=== PATIENT | female | born 1945 | race Caucasian/White ===

== ENCOUNTER 2017-11-08 10:29 | Inpatient (IN) ==
--- NOTE | 2017-11-08 11:13 | ED ---
HPI General Chief Complaint: Extremity Injury, Lower Stated Complaint: Fall, swollen left hip/pelvis Time Seen by Provider: 11/08/17 10:57 History of Present Illness HPI Narrative: Patient is 72-year-old female with history of alcohol abuse presented to emergency room for evaluation of left hip and left lower quadrant of the abdomen. 2 days ago she accidentally fell. Today she presented with large hematoma over her left hip and left lower abdomen with mild tenderness over the hip and lower abdomen as well. Patient is able to ambulate with pain, no other trauma reported. Related Data Home Medications Medication Instructions Recorded Confirmed No Known Home Medications 11/08/17 11/08/17 Allergies Allergy/AdvReac Type Severity Reaction Status Date / Time No Known Allergies Allergy Uncoded 07/15/15 10:04 Review of Systems ROS: all other systems reviewed are negative Musculoskeletal Comments: Left hip and low abdominal wall pain PMFSH Medical History Medical History Patient denies medical problems (Acute) Surgical History Surgical History No history of previous surgery (Acute) Family History Family History Other Multiple myeloma Social History Social History Substance History: No History of Abuse Second Hand Smoke Exposure: No Smoking Status: Never smoker How Often Do You Have a Drink Containing Alcohol: 4 or more times a week Recent Travel in [facility] within the Last 8 Weeks: No Recent Out of Country Travel within the Last 8 Weeks: No Immunization History Tetanus Immunization: >5 Years Hx Influenza Vaccine This Season: No Exam Narrative Exam Narrative: GENERAL: 72-year-old female in no obvious distress. SKIN: Focused skin assessment warm/dry. HEAD: Atraumatic. Normocephalic. EYES: Pupils equal and round. No scleral icterus. No injection or drainage. ENT: No nasal bleeding or discharge. Mucous membranes pink and moist. NECK: Trachea midline. No JVD. CARDIOVASCULAR: Regular rate and rhythm. No murmur appreciated. RESPIRATORY: No accessory muscle use. Clear to auscultation. Breath sounds equal bilaterally. GASTROINTESTINAL: Abdomen soft, non-tender, nondistended. Hepatic and splenic margins not palpable. MUSCULOSKELETAL: No obvious deformities. No clubbing. No cyanosis. No edema. NEUROLOGICAL: Awake and alert. No obvious cranial nerve deficits. Motor grossly within normal limits. Normal speech. PSYCHIATRIC: Appropriate mood and affect; insight and judgment normal. Course Initial Documented Vital Signs Temperature 98.2 F 11/08/17 10:39 Pulse Rate 117 H 11/08/17 10:39 Respiratory Rate 17 11/08/17 10:39 Blood Pressure 166/92 H 11/08/17 10:39 Pulse Oximetry 96 11/08/17 10:39 Last Documented Vital Signs Temperature 98.9 F 11/08/17 16:00 Pulse Rate 112 H 11/08/17 16:00 Respiratory Rate 16 11/08/17 16:00 Blood Pressure 162/79 H 11/08/17 16:00 Pulse Oximetry 94 L 11/08/17 16:00 Critical Care Time Critical Care Time: Yes Total Critical Care Time: 35 Attestation: Treatment of alcohol withdrawal, pain management, evaluation of leukocytosis, patient to the hospital. Medical Decision Making MDM Narrative Medical decision making narrative: 72-year-old female fell 2 days ago. She has hematoma over her left hip and left low abdominal wall. Evaluation evaluation needed for left hip and abdomen. X-ray CAT scan blood work ordered. X-ray and CAT scan negative for fracture. White count is 57.8 which is higher. leukemia suspected. Case discussed with admitting team of Dr. Foley, accepted for admission for further evaluation and treatment Medical Screen Exam Complete: Yes Emergency Medical Condition: Yes Lab Data Result diagrams: 11/08/17 11:15 11/08/17 11:15 Lab Results 11/08/17 11/08/17 11/08/17 Range/Units 11:15 11:15 11:15 WBC 57.8 H (4.0-11.0) th/mm3 RBC 5.59 H (4.00-5.30) mil/mm3 Hgb 15.9 H (11.6-15.3) gm/dL Hct 50.3 H (35.0-46.0) % MCV 90.0 (80.0-100.0) fL MCH 28.5 (27.0-34.0) pg MCHC 31.7 L (32.0-36.0) % RDW 21.6 H (11.6-17.2) % Plt Count 194 (150-450) th/mm3 MPV 8.5 (7.0-11.0) fL Prelim Diff (Auto) Manual diff required WBC Differential Manual diff final Seg Neuts % (Manual) 90 H (16-70) % Band Neuts % (Manual) 2 (0-6) % Lymphocytes % (Manual) 4 L (9-44) % Monocytes % (Manual) 2 (0-8) % Metamyelocytes % (Man) 3 H (0-1) % Myelocytes % (Man) 1 H (0-0) % Abs Neuts (Manual) 55.5 H (1.8-7.7) th/mm3 Nucleated RBCs/100 WBC 1 H (0-0) /100 WBC Differential Comment . Toxic Vacuolation Present H (None) Platelet Estimate Normal (Normal) Platelet Morphology Normal (Normal) Smear Path Review PT 10.6 (9.8-11.6) sec INR 1.0 Ratio APTT 27.1 (24.3-30.1) sec Sodium 137 (136-145) meq/L Potassium 4.0 (3.5-5.1) meq/L Chloride 100 (98-107) meq/L Carbon Dioxide 16.4 L (21.0-32.0) meq/L Anion Gap 21 H (5-15) meq/L BUN 9 (7-18) mg/dL Creatinine 0.91 (0.50-1.00) mg/dL Estimated GFR 61 L (>89) mL/min Random Glucose 102 (74-106) mg/dL Calcium 8.1 L (8.5-10.1) mg/dL Total Bilirubin 2.0 H (0.2-1.0) mg/dL AST 21 (15-37) U/L ALT 27 (10-53) U/L Alkaline Phosphatase 138 H (45-117) U/L Total Protein 7.3 (6.4-8.2) g/dL Albumin 4.1 (3.4-5.0) g/dL Urine Color (Yellw/Straw) Urine Clarity (Clear) Urine pH (5.0-8.5) Ur Specific Polk (1.002-1.035) Urine Protein (Neg-Trace) mg/dL Urine Glucose (UA) (Negative) mg/dL Urine Ketones (Negative) mg/dL Urine Occult Blood (Negative) Urine Nitrate (Negative) Urine Bilirubin (Negative) Urine Urobilinogen (Less than 2) mg/dL Ur Leukocyte Esterase (Negative) Urine RBC (0-3) /hpf Urine WBC (0-5) /hpf Ur Squamous Epith Cells (0-5) /hpf Hyaline Casts (0-3) /lpf Granular Casts (None) /lpf Urine Mucus (Occasional) /lpf Ur Microscopic Review Urine Opiates Screen (Neg) Ur Barbiturates Screen (Neg) Ur Amphetamines Screen (Neg) U Benzodiazepines Scrn (Neg) Urine Cocaine Screen (Neg) U Cannabinoids Screen (Neg) Serum Alcohol 47 H (0-5) mg/dL 11/08/17 11/08/17 11/08/17 Range/Units 11:15 11:58 11:58 WBC (4.0-11.0) th/mm3 RBC (4.00-5.30) mil/mm3 Hgb (11.6-15.3) gm/dL Hct (35.0-46.0) % MCV (80.0-100.0) fL MCH (27.0-34.0) pg MCHC (32.0-36.0) % RDW (11.6-17.2) % Plt Count (150-450) th/mm3 MPV (7.0-11.0) fL Prelim Diff (Auto) WBC Differential Seg Neuts % (Manual) (16-70) % Band Neuts % (Manual) (0-6) % Lymphocytes % (Manual) (9-44) % Monocytes % (Manual) (0-8) % Metamyelocytes % (Man) (0-1) % Myelocytes % (Man) (0-0) % Abs Neuts (Manual) (1.8-7.7) th/mm3 Nucleated RBCs/100 WBC (0-0) /100 WBC Differential Comment Toxic Vacuolation (None) Platelet Estimate (Normal) Platelet Morphology (Normal) Smear Path Review PT (9.8-11.6) sec INR Ratio APTT (24.3-30.1) sec Sodium (136-145) meq/L Potassium (3.5-5.1) meq/L Chloride (98-107) meq/L Carbon Dioxide (21.0-32.0) meq/L Anion Gap (5-15) meq/L BUN (7-18) mg/dL Creatinine (0.50-1.00) mg/dL Estimated GFR (>89) mL/min Random Glucose (74-106) mg/dL Calcium (8.5-10.1) mg/dL Total Bilirubin (0.2-1.0) mg/dL AST (15-37) U/L ALT (10-53) U/L Alkaline Phosphatase (45-117) U/L Total Protein (6.4-8.2) g/dL Albumin (3.4-5.0) g/dL Urine Color Yellow (Yellw/Straw) Urine Clarity Hazy H (Clear) Urine pH 5.0 (5.0-8.5) Ur Specific Polk 1.021 (1.002-1.035) Urine Protein 30 H (Neg-Trace) mg/dL Urine Glucose (UA) Negative (Negative) mg/dL Urine Ketones Trace H (Negative) mg/dL Urine Occult Blood Negative (Negative) Urine Nitrate Negative (Negative) Urine Bilirubin Negative (Negative) Urine Urobilinogen Less than 2 (Less than 2) mg/dL Ur Leukocyte Esterase Negative (Negative) Urine RBC Less than 1 (0-3) /hpf Urine WBC 1 (0-5) /hpf Ur Squamous Epith Cells 3 (0-5) /hpf Hyaline Casts 5 (0-3) /lpf Granular Casts 5 (None) /lpf Urine Mucus Few H (Occasional) /lpf Ur Microscopic Review Not Reportable Urine Opiates Screen Neg (Neg) Ur Barbiturates Screen Neg (Neg) Ur Amphetamines Screen Neg (Neg) U Benzodiazepines Scrn Neg (Neg) Urine Cocaine Screen Neg (Neg) U Cannabinoids Screen Neg (Neg) Serum Alcohol (0-5) mg/dL Imaging Data Radiologist's impression: Abdomen/Pelvis CT 11/08/17 11:05 CONCLUSION: 1. Large subcutaneous hematoma over the left lateral abdomen adjacent to the anterior iliac bone. This measures up to at least 7.3 cm and there is surrounding inflammatory change. 2. No acute visceral injury. 3. Moderate hepatic steatosis. Hip X-Ray 11/08/17 11:05 CONCLUSION: Negative trauma study. Discharge Plan Discharge Disposition Patient Disposition: 30 Still Patient Discharge Condition Condition: Fair Discharge Details Discharge Comment: Patient has high white count, admitted for further evaluation and treatment. Diagnosis: Leukocytosis, unspecified Physicians Team ED Provider: Angel Mg Primary Care Provider: Primary Care Mitzi Corbett Attending Provider: Denis Foley Status ED Status: Left Department Discharge Information Discharge Date/Time: 11/08/17 16:12
[2017-11-08 11:26] LABS: Hematocrit 50.3 % (35.0-46.0); Hemoglobin 15.9 gm/dL (11.6-15.3); Mean Corpuscular HGB Conc 31.7 % (32.0-36.0); Mean Corpuscular Hemoglobin 28.5 pg (27.0-34.0); Mean Platelet Volume 8.5 fL (7.0-11.0); Platelet Count 194 th/mm3 (150-450); Red Blood Count 5.59 mil/mm3 (4.00-5.30); Red Cell Distribution Width 21.6 % (11.6-17.2); White Blood Count 57.8 th/mm3 (4.0-11.0)
[2017-11-08] MEDS ORDERED: Dextrose 5%/NaCl 0.45% Inj 1,000 ML IV.CONT SCH (11:30)
[2017-11-08 11:44] LABS: Activated Partial Thrombo Time 27.1 sec (24.3-30.1); Alanine Aminotransferase 27 U/L (10-53); Albumin 4.1 g/dL (3.4-5.0); Anion Gap 21 meq/L (5-15); Aspartate Aminotransferase 21 U/L (15-37); Blood Urea Nitrogen 9 mg/dL (7-18); Calcium 8.1 mg/dL (8.5-10.1); Carbon Dioxide 16.4 meq/L (21.0-32.0); Chloride 100 meq/L (98-107); Glomerular Filtration Rate 61 mL/min (>89); Glucose,Random 102 mg/dL (74-106); Prothrombin Time 10.6 sec (9.8-11.6); Sodium 137 meq/L (136-145)
[2017-11-08 11:46] LABS: Alcohol 47 mg/dL (0-5); Alkaline Phosphatase 138 U/L (45-117); Total Protein 7.3 g/dL (6.4-8.2)
[2017-11-08 12:02] LABS: Lymphocytes 4 % (9-44); Metamyelocytes 3 % (0-1); Monocytes 2 % (0-8); Myelocytes 1 % (0-0); Tallied Nucleated RBC 2 (0-0)
[2017-11-08 12:03] LABS: Platelet Estimate Normal (Normal); Platelet Morphology Normal (Normal); Toxic Vacuolation Present
--- NOTE | 2017-11-08 12:11 | XR ---
EXAM DATE: 11/08/2017 11:05 AM EDT AGE/SEX: 72 years / Female INDICATIONS: Fell 2 days ago, swelling and bruised in left flank/hip area. CLINICAL DATA: This is the patient's initial encounter. Patient reports that signs and symptoms have been present for 2 days and indicates a pain score of 1/10. MEDICAL/SURGICAL HISTORY: None. None. COMPARISON: No prior exams available for comparison. FINDINGS: Bony structures are intact and in normal alignment. Joints are intact without dislocation or signifi cant arthropathy. Osseous density is normal. Soft tissues are unremarkable. No radiopaque foreign bodies seen. CONCLUSION: Negative trauma study. Electronically signed by: Denis Kamara MD 11/08/2017 12:10 PM EDT
[2017-11-08] MEDS: Sod Chloride 0.9% Inj 1,000 ML IV.CONT SCH ×3 (12:19→20:18)
[2017-11-08 12:27] LABS: Bilirubin,Urine Negative (Negative); Clarity,Urine Hazy (Clear); Color,Urine Yellow (Yellw/Straw); Glucose,Urine (UA) Negative (Negative); Hyaline Casts,Urine 5 /lpf (0-3); Leukocyte Esterase,Urine Negative (Negative); Mucus,Urine Few /lpf (Occasional); Nitrite,Urine Negative (Negative); Specific Gravity,Urine 1.021 (1.002-1.035); Squamous Epithelial Cell,Urine 3 /hpf (0-5)
[2017-11-08 12:41] LABS: Amphetamine Screen,Urine Neg (Neg); Barbiturate Screen,Urine Neg (Neg); Cannabinoid Screen,Urine Neg (Neg); Cocaine Screen,Urine Neg (Neg)
--- NOTE | 2017-11-08 12:41 | CT ---
EXAM DATE: 11/08/2017 12:05 PM EDT AGE/SEX: 72 years / Female INDICATIONS: Slipped and fell down two days ago. CLINICAL DATA: This is the patient's initial encounter. Patient reports that signs and symptoms have been present for 1 day and indicates a pain score of 10/10. MEDICAL/SURGICAL HISTORY: None. None. ORAL CONTRAST: No oral contrast ingested. RADIATION DOSE: 6.57 CTDI (mGy) COMPARISON: . TECHNIQUE: Multiple contiguous axial images were obtained through the abdomen and pelvis following b olus infusion of 90 ml Omnipaque 350 (iohexol) nonionic water-soluble contrast as a single exam dos e. No oral contrast ingested. Using automated exposure control and adjustment of the mA and/or kV ac cording to patient size, radiation dose was kept as low as reasonably achievable to obtain optimal di agnostic quality images. DICOM format image data is available electronically for review and comparis on. FINDINGS: Lower Lungs: The visualized lower lungs are clear. Liver: The liver has a homogeneous density without space-occupying lesion. There is no dilation of th e biliary tree. There is moderate diffuse hepatic steatosis. The gallbladder is unremarkable in appea smita. Spleen: Homogeneous density without enlargement. Pancreas: Unremarkable without mass or calcification. Kidneys: Normal in size and shape. No evidence of mass or hydronephrosis. Adrenal Glands: Unremarkable. Aorta: The aorta and proximal iliac vessels are grossly unremarkable without aneurysmal dilation. Bowel/Mesentery: The bowel loops are grossly unremarkable. The cecum and sigmoid colon have a normal configuration. Abdominal Wall: Intact. There is a large soft tissue hematoma over the lower left lateral abdomen ad jacent to the anterior iliac bone. This measures up to 7.3 x 5.7 cm in diameter. There is surrounding hemorrhage and inflammatory change. This extends along the lateral abdominal musculature and down in to the right inguinal region and upper lateral thigh. Retroperitoneum: No evidence of adenopathy in the retrocrural, para-aortic, or deep pelvic regions. Bladder: Contours are smooth. Reproductive Organs: No abnormal masses or calcifications seen. Inguinal: The inguinal region is unremarkable without evidence of adenopathy. Bony Structures: Unremarkable. CONCLUSION: 1. Large subcutaneous hematoma over the left lateral abdomen adjacent to the anterior iliac bone. Th is measures up to at least 7.3 cm and there is surrounding inflammatory change. 2. No acute visceral injury. 3. Moderate hepatic steatosis. Electronically signed by: Denis Kamara MD 11/08/2017 12:40 PM EDT
[2017-11-08 12:55] LABS: Opiate Screen,Urine Neg (Neg)
--- NOTE | 2017-11-08 13:51 | P.HPFP ---
History of Present Illness Primary Care Physician: No Primary Care Physician <GustavogalinaDenis K - 11/08/17 21:01> No Primary Care Physician <Amanda Park - 11/08/17 13:51> History of Present Illness: 72-year-old female presents to the ED with left hip pain. Here with . States that she was at her neighbor's house on Tuesday and fell while she was walking down the stairs from the porch. She fell on her left hip. She mainly experienced bruising and swelling of her left hip. She states that she lost her balance. She did not hit her head. She denies loss of consciousness, tongue biting cough, loss of bowel or bladder symptoms, and palpitations. Patient states that they were in [facility] at the time and did not want to seek medical care there. She states that her and her live in a camper and were traveling to [facility]. She has no history of fractures. She denies chest pain, SOB , weight loss, fevers, chills, and night sweats. PMHx: HTN? PSHx: skin cancer removal on nose teeth removed Meds: none Allergies:NKDA FHx: Mom- 86 multiple myeloma Dad-91- heart conditions Siblings: sister cancer-breast cancer Social: Live with , retired Smoking- denies Alcohol-1 beer/1 vodka / night Denies illicit drug use <Amanda Park - 11/08/17 17:23> - Diagnosis (1) Hip hematoma, left (2) Leukocytosis (3) Polycythemia (4) HTN (hypertension) (5) Nutrition, metabolism, and development symptoms (6) Alcohol use <GustavogalinaDenis K - 11/08/17 21:01> (1) Hip hematoma, left (2) Leukocytosis (3) Polycythemia (4) HTN (hypertension) (5) Nutrition, metabolism, and development symptoms (6) Alcohol use <Amanda Park - 11/08/17 17:23> Inpatient Certification: I certify that the inpatient services were ordered in accordance with Medicare regulations governing the order. This includes certification that hospital inpatient services are reasonable and necessary and in the case of services not specified as inpatient-only under 42 CFR 419.22(n), that they are appropriately provided as inpatient services in accordance to with the 2-midnight benchmark under 43 CFR 412.3(e) <Denis Foley 11/08/17 21:01> Review of Systems Constitutional: Denies fever(s), Denies night sweats, Denies weight loss <Xavier Amandavilma Meyer 11/08/17 17:23> Eyes: Denies blurry vision <XavierAmandavilma Meyer 11/08/17 17:23> Cardiovascular: Denies chest pain, Denies lightheadedness <Amanda Park 11/08/17 17:23> Gastrointestinal: Denies abdominal pain, Denies nausea, Denies vomiting <Amanda Park 11/08/17 17:23> Genitourinary: Denies difficulty urinating <Amanda Park 11/08/17 17:23> Musculoskeletal: Reports joint pain, Reports joint swelling <XavierAmandavilma Meyer 11/08/17 17:23> Neurologic: Denies tingling/numbness/burning sensations, Denies weakness <Xavier Amandavilma Meyer 11/08/17 17:23> PMFSH - History History Provided By: Patient <XavierJoseAmandavilma Meyer 11/08/17 13:51> - Medical History Medical History: Medical History (Last Updated 11/08/17 @ 10:59 by Cindy Sanchez, RN) Patient denies medical problems <Denis Foley 11/08/17 21:01> Medical History (Last Updated 11/08/17 @ 10:59 by Cindy Sanchez, RN) Patient denies medical problems <Amanda Park 11/08/17 13:51> - Surgical History Surgical History: Surgical History (Last Updated 11/08/17 @ 10:59 by Cindy Sanchez, RN) No history of previous surgery <Denis Foley 11/08/17 21:01> Surgical History (Last Updated 11/08/17 @ 10:59 by Cindy Sanchez, RN) No history of previous surgery <Amanda Park 11/08/17 13:51> - Family History Family History: Family History (Last Updated 11/08/17 @ 17:21 by Amanda Park MD, R2) Other Multiple myeloma <Denis Foley - 11/08/17 21:01> Family History (Last Updated 11/08/17 @ 17:21 by Amanda Park MD, R2) Other Multiple myeloma <Amanda Park - 11/08/17 17:23> - Tobacco History Smoking Status: Never smoker <XavierAmandavilma You - 11/08/17 13:51> - Alcohol History How Often Do You Have a Drink Containing Alcohol: 4 or more times a week <Amanda Park - 11/08/17 13:51> - Substance Use History Substance History: No History of Abuse <Amanda Park - 11/08/17 13:51> - Substance Use Type Alcohol Status: Active <Amanda Park - 11/08/17 17:23> Route Used: By Mouth <XavierAmandavilma Meyer Kenyatta - 11/08/17 17:23> Frequency: SEVERAL TIMES A DAY <Amanda Park Kenyatta - 11/08/17 17:23> Last Used: 11/08/17 <XavierAmandavilma Meyer Kenyatta - 11/08/17 17:23> Reason for Use: Calm Down <Amanda Park Kenyatta - 11/08/17 17:23> - Travel History Recent Travel in the [place] Within the Last 8 Weeks: No <Amanda Park Kenyatta - 11/08 13:51> Recent Travel Out of the Country Within the Last 8 Weeks: No <Amanda Park Kenyatta - 11/08/17 13:51> - Immunization History Tetanus Immunization: >5 Years <Amanda Park - 11/08/17 13:51> Hx Influenza Vaccine This Season: No <XavierAmandavilma Meyer Kenyatta - 11/08/17 13:51> Medications and Allergies Allergies Allergy/AdvReac Type Severity Reaction Status Date / Time No Known Allergies Allergy Uncoded 07/15/15 10:04 <Denis Foley 11/08/17 21:01> Home Medications Medication Instructions Recorded Confirmed Type No Known Home Medications 11/08/17 11/08/17 History <Denis Foley 11/08/17 21:01> Active Medications: Active Medications Clonidine HCl (Catapres) 0.1 mg PO Q6H PRN PRN Reason: SEE LABEL COMMENTS Enoxaparin Sodium (Lovenox Inj) 40 mg SQ Q24H [facility] Last Admin: 11/08/17 18:36 Dose: 40 mg Flumazenil (Romazecon Inj) 0.2 mg IV.PUSH Q1M PRN PRN Reason: OVERSEDATION Haloperidol Lactate (Haldol Inj) 1 mg IV.PUSH Q15M PRN PRN Reason: for severe agitation Sodium Chloride (Ns Inj) 1,000 mls @ 150 mls/hr IV.CONT .Q6H40M [facility] Last Admin: 11/08/17 20:18 Dose: 150 mls/hr Ibuprofen (Motrin) 400 mg PO Q6HR PRN PRN Reason: PAIN SCALE 1 TO 2 Ketorolac Tromethamine (Toradol Inj) 15 mg IV.PUSH Q6H PRN PRN Reason: PAIN 3-5; IF UABLE TO TAKE PO Stop: 11/13/17 15:59 Ketorolac Tromethamine (Toradol Inj) 30 mg IV.PUSH Q6H PRN PRN Reason: PAIN 6-10;IF UNABLE TO TAKE PO Stop: 11/13/17 15:59 Lisinopril (Prinivil) 20 mg PO DAILY [facility] Last Admin: 11/08/17 18:11 Dose: 20 mg Lorazepam (Ativan) 1 mg PO Q4H PRN PRN Reason: for CIWA 8-10 Lorazepam (Ativan) 2 mg PO Q2H PRN PRN Reason: for CIWA 11-14 Lorazepam (Ativan Inj) 2 mg IV.PUSH Q2H PRN PRN Reason: for CIWA 11-14 Lorazepam (Ativan Inj) 2 mg IV.PUSH Q15M PRN PRN Reason: for CIWA > 20 Lorazepam (Ativan Inj) 1 mg IV.PUSH Q4H PRN PRN Reason: for CIWA 8-10 Lorazepam (Ativan Inj) 2 mg IV.PUSH Q1H PRN PRN Reason: for CIWA 15-20 Naloxone HCl (Narcan Inj) 0.4 mg IV.PUSH UNSCH PRN PRN Reason: SEE LABEL COMMENTS Sodium Chloride (Ns Flush) 2 ml IV.FLUSH BID [facility] Last Admin: 11/08/17 20:18 Dose: Not Given Sodium Chloride (Ns Flush) 2 ml IV.FLUSH UNSCH PRN PRN Reason: FLUSH AFTER USING IV ACCESS <Denis Foley David - 11/08/17 21:01> Active Medications Sodium Chloride (Ns Inj) 1,000 mls @ 150 mls/hr IV.CONT .Q6H40M [facility] Last Admin: 11/08/17 12:19 Dose: 150 mls/hr <Amanda Park T - 11/08/17 13:51> Exam Vital signs: Vital Signs 11/08/17 10:39 11/08/17 11:03 11/08/17 15:44 Temperature 98.2 F Pulse Rate 117 H 118 H 119 H Respiratory Rate 17 23 16 Blood Pressure 166/92 H 157/90 H 151/73 H Pulse Oximetry 96 95 96 11/08/17 16:00 Temperature 98.9 F Pulse Rate 112 H Respiratory Rate 16 Blood Pressure 162/79 H Pulse Oximetry 94 L Intake & Output 11/08/17 11/08/17 11/09/17 06:59 18:59 06:59 Intake Total 1000 / 1000 Balance 1000 / 1000 Weight 54.431 kg Intake: IV 1000 / 1000 NS Inj 1,000 ML @ 150 mls/hr IV 1000 / 1000 .CONT .Q6H40M [facility] Rx#:[id number] Other: # Voids 1 Date of Last Bowel Movement 11/08/17 <Denis Foley David - 11/08/17 21:01> Vital Signs 11/08/17 10:39 11/08/17 11:03 Temperature 98.2 F Pulse Rate 117 H 118 H Respiratory Rate 17 23 Blood Pressure 166/92 H 157/90 H Pulse Oximetry 96 95 Intake & Output 11/07/17 11/08/17 11/08/17 18:59 06:59 18:59 Weight 54.431 kg <Amanda Park T - 11/08/17 13:51> Narrative: General: Elderly, pleasant, female resting comfortably in bed Skin: 27 x 25 cm hematoma located on left hip radiating to midline of back and left thigh HEENT: PERRLA, EOMI, no lymphadenopathy, throat clear Cardio: Regular rate and rhythm, no murmurs rubs or gallops Pulmonary: Clear to auscultation bilaterally, no wheezes or crackles Abdomen: Soft, tender around hematoma, nondistended, positive bowel sounds Extremities: No cyanosis or edema Neuro: Alert and oriented <Amanda Park T - 11/08/17 17:23> Results - Labs Result diagrams: 11/08/17 11:15 11/08/17 11:15 <Denis Foley K - 11/08/17 21:01> Abnormal lab results 11/08/17 11/08/17 11/08/17 Range/Units 11:15 11:15 11:58 WBC 57.8 H (4.0-11.0) th/mm3 RBC 5.59 H (4.00-5.30) mil/mm3 Hgb 15.9 H (11.6-15.3) gm/dL Hct 50.3 H (35.0-46.0) % MCHC 31.7 L (32.0-36.0) % RDW 21.6 H (11.6-17.2) % Seg Neuts % (Manual) 90 H (16-70) % Lymphocytes % (Manual) 4 L (9-44) % Metamyelocytes % (Man) 3 H (0-1) % Myelocytes % (Man) 1 H (0-0) % Abs Neuts (Manual) 55.5 H (1.8-7.7) th/mm3 Nucleated RBCs/100 WBC 1 H (0-0) /100 WBC Toxic Vacuolation Present H (None) Carbon Dioxide 16.4 L (21.0-32.0) meq/L Anion Gap 21 H (5-15) meq/L Estimated GFR 61 L (>89) mL/min Calcium 8.1 L (8.5-10.1) mg/dL Total Bilirubin 2.0 H (0.2-1.0) mg/dL Alkaline Phosphatase 138 H (45-117) U/L Urine Clarity Hazy H (Clear) Urine Protein 30 H (Neg-Trace) mg/dL Urine Ketones Trace H (Negative) mg/dL Urine Mucus Few H (Occasional) /lpf Serum Alcohol 47 H (0-5) mg/dL Short CBC 11/08/17 Range/Units 11:15 WBC 57.8 H (4.0-11.0) th/mm3 Hgb 15.9 H (11.6-15.3) gm/dL Hct 50.3 H (35.0-46.0) % Plt Count 194 (150-450) th/mm3 BMP 11/08/17 11:15 Sodium 137 Potassium 4.0 Chloride 100 Carbon Dioxide 16.4 L BUN 9 Creatinine 0.91 Calcium 8.1 L Liver Function 11/08/17 Range/Units 11:15 Total Bilirubin 2.0 H (0.2-1.0) mg/dL AST 21 (15-37) U/L ALT 27 (10-53) U/L Alkaline Phosphatase 138 H (45-117) U/L Albumin 4.1 (3.4-5.0) g/dL Urine 11/08/17 Range/Units 11:58 Urine Color Yellow (Yellw/Straw) Urine Clarity Hazy H (Clear) Urine pH 5.0 (5.0-8.5) Ur Specific Minto 1.021 (1.002-1.035) Urine Protein 30 H (Neg-Trace) mg/dL Urine Glucose (UA) Negative (Negative) mg/dL <Denis Foley - 11/08/17 21:01> Abnormal lab results 11/08/17 11/08/17 11/08/17 Range/Units 11:15 11:15 11:58 WBC 57.8 H (4.0-11.0) th/mm3 RBC 5.59 H (4.00-5.30) mil/mm3 Hgb 15.9 H (11.6-15.3) gm/dL Hct 50.3 H (35.0-46.0) % MCHC 31.7 L (32.0-36.0) % RDW 21.6 H (11.6-17.2) % Seg Neuts % (Manual) 90 H (16-70) % Lymphocytes % (Manual) 4 L (9-44) % Metamyelocytes % (Man) 3 H (0-1) % Myelocytes % (Man) 1 H (0-0) % Abs Neuts (Manual) 55.5 H (1.8-7.7) th/mm3 Nucleated RBCs/100 WBC 1 H (0-0) /100 WBC Toxic Vacuolation Present H (None) Carbon Dioxide 16.4 L (21.0-32.0) meq/L Anion Gap 21 H (5-15) meq/L Estimated GFR 61 L (>89) mL/min Calcium 8.1 L (8.5-10.1) mg/dL Total Bilirubin 2.0 H (0.2-1.0) mg/dL Alkaline Phosphatase 138 H (45-117) U/L Urine Clarity Hazy H (Clear) Urine Protein 30 H (Neg-Trace) mg/dL Urine Ketones Trace H (Negative) mg/dL Urine Mucus Few H (Occasional) /lpf Serum Alcohol 47 H (0-5) mg/dL Short CBC 11/08/17 Range/Units 11:15 WBC 57.8 H (4.0-11.0) th/mm3 Hgb 15.9 H (11.6-15.3) gm/dL Hct 50.3 H (35.0-46.0) % Plt Count 194 (150-450) th/mm3 BMP 11/08/17 11:15 Sodium 137 Potassium 4.0 Chloride 100 Carbon Dioxide 16.4 L BUN 9 Creatinine 0.91 Calcium 8.1 L Liver Function 11/08/17 Range/Units 11:15 Total Bilirubin 2.0 H (0.2-1.0) mg/dL AST 21 (15-37) U/L ALT 27 (10-53) U/L Alkaline Phosphatase 138 H (45-117) U/L Albumin 4.1 (3.4-5.0) g/dL Urine 11/08/17 Range/Units 11:58 Urine Color Yellow (Yellw/Straw) Urine Clarity Hazy H (Clear) Urine pH 5.0 (5.0-8.5) Ur Specific Minto 1.021 (1.002-1.035) Urine Protein 30 H (Neg-Trace) mg/dL Urine Glucose (UA) Negative (Negative) mg/dL <Amanda Park T - 11/08/17 13:51> - Imaging Impressions Abdomen/Pelvis CT 11/08/17 11:05 CONCLUSION: 1. Large subcutaneous hematoma over the left lateral abdomen adjacent to the anterior iliac bone. This measures up to at least 7.3 cm and there is surrounding inflammatory change. 2. No acute visceral injury. 3. Moderate hepatic steatosis. Hip X-Ray 11/08/17 11:05 CONCLUSION: Negative trauma study. <Denis Foley - 11/08/17 21:01> Impressions Abdomen/Pelvis CT 11/08/17 11:05 CONCLUSION: 1. Large subcutaneous hematoma over the left lateral abdomen adjacent to the anterior iliac bone. This measures up to at least 7.3 cm and there is surrounding inflammatory change. 2. No acute visceral injury. 3. Moderate hepatic steatosis. Hip X-Ray 11/08/17 11:05 CONCLUSION: Negative trauma study. <Amanda Park T - 11/08/17 13:51> Caprini VTE Risk Assessment Caprini VTE Risk Assessment: Moderate/High Risk (score >= 2) <Amanda Park T - 11/08/17 17:34> Caprini Risk Assessment Model: Point Value = 1 Point Value = 2 Point Value = 3 Point Value = 5 Age 41-60 Minor surgery BMI > 25 kg/m2 Swollen legs Varicose veins or History of unexplained or recurrent spontaneous Oral contraceptives or hormone replacement Sepsis (< 1 month) Serious lung disease, including pneumonia (< 1 month) Abnormal pulmonary function Acute myocardial infarction Congestive heart failure (< 1 month) History of inflammatory bowel disease Medical patient at bed rest Age 61-74 Arthroscopic surgery Major open surgery (> 45 min) Laparoscopic surgery (> 45 min) Malignancy Confined to bed (> 72 hours) Immobilizing plaster cast Central venous access Age >= 75 History of VTE Family history of VTE Factor V Leiden Prothrombin [id number] Lupus anticoagulant Anticardiolipin antibodies Elevated serum homocysteine Heparin-induced thrombocytopenia Other congenital or acquired thrombophilia Stroke (< 1 month) Elective arthroplasty Hip, pelvis, or leg fracture Acute spinal cord injury (< 1 month) <Denis Foley K - 11/08/17 21:01> Point Value = 1 Point Value = 2 Point Value = 3 Point Value = 5 Age 41-60 Minor surgery BMI > 25 kg/m2 Swollen legs Varicose veins or History of unexplained or recurrent spontaneous Oral contraceptives or hormone replacement Sepsis (< 1 month) Serious lung disease, including pneumonia (< 1 month) Abnormal pulmonary function Acute myocardial infarction Congestive heart failure (< 1 month) History of inflammatory bowel disease Medical patient at bed rest Age 61-74 Arthroscopic surgery Major open surgery (> 45 min) Laparoscopic surgery (> 45 min) Malignancy Confined to bed (> 72 hours) Immobilizing plaster cast Central venous access Age >= 75 History of VTE Family history of VTE Factor V Leiden Prothrombin [id number] Lupus anticoagulant Anticardiolipin antibodies Elevated serum homocysteine Heparin-induced thrombocytopenia Other congenital or acquired thrombophilia Stroke (< 1 month) Elective arthroplasty Hip, pelvis, or leg fracture Acute spinal cord injury (< 1 month) <Amanda Park T - 11/08/17 13:51> Prophylaxis Regimen: Total Risk Factor Score Risk Level Prophylaxis Regimen 0-1 Low Early ambulation 2 Moderate Order ONE of the following: *Sequential Compression Device (SCD) *Heparin 5000 units SQ BID 3-4 Higher Order ONE of the following medications: *Heparin 5000 units SQ TID *Enoxaparin/Lovenox 40 mg SQ daily (WT < 150 kg, CrCl > 30 mL/min) *Enoxaparin/Lovenox 30 mg SQ daily (WT < 150 kg, CrCl > 10-29 mL/min) *Enoxaparin/Lovenox 30 mg SQ BID (WT < 150 kg, CrCl > 30 mL/min) AND/OR *Sequential Compression Device (SCD) 5 or more Highest Order ONE of the following medications: *Heparin 5000 units SQ TID (Preferred with Epidurals) *Enoxaparin/Lovenox 40 mg SQ daily (WT < 150 kg, CrCl > 30 mL/min) *Enoxaparin/Lovenox 30 mg SQ daily (WT < 150 kg, CrCl > 10-29 mL/min) *Enoxaparin/Lovenox 30 mg SQ BID (WT < 150 kg, CrCl > 30 mL/min) AND *Sequential Compression Device (SCD) <Denis Foley - 11/08/17 21:01> Total Risk Factor Score Risk Level Prophylaxis Regimen 0-1 Low Early ambulation 2 Moderate Order ONE of the following: *Sequential Compression Device (SCD) *Heparin 5000 units SQ BID 3-4 Higher Order ONE of the following medications: *Heparin 5000 units SQ TID *Enoxaparin/Lovenox 40 mg SQ daily (WT < 150 kg, CrCl > 30 mL/min) *Enoxaparin/Lovenox 30 mg SQ daily (WT < 150 kg, CrCl > 10-29 mL/min) *Enoxaparin/Lovenox 30 mg SQ BID (WT < 150 kg, CrCl > 30 mL/min) AND/OR *Sequential Compression Device (SCD) 5 or more Highest Order ONE of the following medications: *Heparin 5000 units SQ TID (Preferred with Epidurals) *Enoxaparin/Lovenox 40 mg SQ daily (WT < 150 kg, CrCl > 30 mL/min) *Enoxaparin/Lovenox 30 mg SQ daily (WT < 150 kg, CrCl > 10-29 mL/min) *Enoxaparin/Lovenox 30 mg SQ BID (WT < 150 kg, CrCl > 30 mL/min) AND *Sequential Compression Device (SCD) <Amanda Park T - 11/08/17 13:51> Assessment and Plan - Assessment (1) Hip hematoma, left Code(s): S70.02XA - Contusion of left hip, initial encounter Status: Acute (2) Leukocytosis Code(s): D72.829 - Elevated white blood cell count, unspecified Status: Acute (3) Polycythemia Code(s): D75.1 - Secondary polycythemia Status: Acute (4) HTN (hypertension) Code(s): I10 - Essential (primary) hypertension Status: Acute (5) Nutrition, metabolism, and development symptoms Code(s): R63.8 - Other symptoms and signs concerning food and fluid intake Status: Acute (6) Alcohol use Code(s): Z78.9 - Other specified health status Status: Acute <GustavophuDenis moreno K - 11/08/17 21:01> (1) Hip hematoma, left Code(s): S70.02XA - Contusion of left hip, initial encounter Status: Acute (2) Leukocytosis Code(s): D72.829 - Elevated white blood cell count, unspecified Status: Acute (3) Polycythemia Code(s): D75.1 - Secondary polycythemia Status: Acute (4) HTN (hypertension) Code(s): I10 - Essential (primary) hypertension Status: Acute (5) Nutrition, metabolism, and development symptoms Code(s): R63.8 - Other symptoms and signs concerning food and fluid intake Status: Acute (6) Alcohol use Code(s): Z78.9 - Other specified health status Status: Acute <Amanda Park T - 11/08/17 17:23> - Assessment and Plan 72-year-old female presents to the ED due to pain of left hip secondary to fall. Negative for fracture. Patient found to have leukocytosis and polycythemia on CBC. Patient admitted for further workup. Leukocytosis -CBC with differential demonstrates WBC of 57.8, presence of metamyelocytes, myelocytes, neutrophils. Suspecting myeloproliferative disorder. -Patient denies B symptoms -Peripheral smear ordered -Consult Hem/Onc, appreciate recommendations Polycythemia -CBC with differential demonstrates hemoglobin of 15.9 and hematocrit of 50.3 -See plan above Hematoma of left hip -25 x 27 cm hematoma present on the left hip -Hip x-ray negative for fracture -Plt level of 194 -Coagulation profile wnl -Continue supportive therapy Hypertension -Blood pressure ranging 150-160s/70-90s -Patient is currently not on any antihypertensives at home -BMP demonstrates BUN of 9 and Cr of 0.91 -Start patient on lisinopril 20 mg -Clonidine 0.1 mg as needed for BP>180/100 Alcohol use -Patient states that she drinks about 1-3 beers and 1 glass of vodka every night -[facility] protocol in place Diet: Regular diet Fluids: P.o. hydration Vitals every 4, monitor I's and O's DVT prophylaxis: Lovenox <Amanda Park Meyer T - 11/08/17 17:34> - Attending Attestation The exam, history, and the medical decision-making described in the above note were completed with the assistance of the resident physician. I attest that I had a [id number] encounter with the patient on the same day, and personally performed and documented my assessment and findings in the medical record. I reviewed and agree with the findings presented with the exception of: On my exam, where area of ecchymoses is charger tester, erythema appreciated and very warm to touch, there is an small area of broken skin with surrounding induration. CT did not show evidence of loculation but did show inflammation surrounding the hematoma. As she has such a leukocytosis with predominant neutrophils, toxic vacuoles, persistent tachycardia, and an anion gap, I will add lactic acid, LDH, blood cultures, IV vancomycin, clinda, and a fluid bolus and treat It is curious how well appearing she looks and the heme/onc consult may be helpful in differentiation tomorrow if she does not respond to treatment but will start empiric treatment now as I do not want it to progress rapidly before evaluation, will continue to assess clinically for signs of necrotizing fasciitis. Will start treating HTN tomorrow. Agree with inpatient treatment <Denis Foley - 11/08/17 21:01>
[2017-11-08] MEDS ORDERED: Naloxone Inj 0.4 MG/ML Vial IV.PUSH PRN (14:39)
[2017-11-08] MEDS ORDERED: Haloperidol Inj 5 MG/ML Ampul IV.PUSH PRN (15:24)
[2017-11-08] MEDS ORDERED: LORazepam 1 MG Tablet PO PRN (15:24)
[2017-11-08] MEDS ORDERED: Ketorolac Inj 30 MG/ML (IVP) Vial IV.PUSH PRN ×2 (16:00)
[2017-11-08] MEDS ORDERED: Ibuprofen 400 MG Tablet PO PRN (16:00)
[2017-11-08] MEDS: Lisinopril 20 MG Tablet PO SCH (18:11)
[2017-11-08] MEDS ORDERED: Enoxaparin Inj 40 MG/0.4 ML Syringe SQ SCH (18:30)
[2017-11-08] MEDS ORDERED: Vancomycin Consult Pharmacy OTHER PRN (20:59)
[2017-11-08] MEDS ORDERED: Vancomycin Inj 1,000 MG in Sodium Chlor 0.9% Inj 250 ML IV.SIG ONE (22:00)
--- NOTE | 2017-11-08 22:12 | ECG ---
Date Performed: 11/08/2017 Time Performed: 14:36:24 PTAGE: 72 years EKG: SINUS TACHYCARDIA POSSIBLE LEFT ATRIAL ENLARGEMENT LOW QRS VOLTAGE IN PRECORDIAL LEADS MINI MAL ST DEPRESSION ABNORMAL RHYTHM ECG NO PREVIOUS TRACING DOCTOR: Dae Cardenas Interpretating Date/Time 11/08/2017 22:10:50
[2017-11-08] MEDS: Clindamycin 600 mg/NS Premix 600 MG/50 ML PIGGYBACK IV.SIG SCH (23:41)
[2017-11-09] MEDS: Sod Chloride 0.9% Inj 1,000 ML IV.CONT SCH ×6 (00:23→21:11)
[2017-11-09] MEDS: Clindamycin 600 mg/NS Premix 600 MG/50 ML PIGGYBACK IV.SIG SCH ×3 (05:33→21:11)
[2017-11-09 06:14] LABS: Baso # (Auto) 0.1 th/mm3 (0.0-0.2); Baso % (Auto) 0.3 % (0.0-2.0); Hematocrit 41.2 % (35.0-46.0); Hemoglobin 13.3 gm/dL (11.6-15.3); Lymph % (Auto) 9.7 % (9.0-44.0); Mean Corpuscular HGB Conc 32.4 % (32.0-36.0); Mean Corpuscular Hemoglobin 28.7 pg (27.0-34.0); Mean Corpuscular Volume 88.8 fL (80.0-100.0); Mean Platelet Volume 8.7 fL (7.0-11.0); Mono # (Auto) 1.7 th/mm3 (0.0-0.9); Mono % (Auto) 4.2 % (0.0-8.0); Neut % (Auto) 85.8 % (16.0-70.0); Platelet Count 156 th/mm3 (150-450); Red Blood Count 4.64 mil/mm3 (4.00-5.30); White Blood Count 40.8 th/mm3 (4.0-11.0)
[2017-11-09 06:28] LABS: Calcium 7.6 mg/dL (8.5-10.1); Carbon Dioxide 24.8 meq/L (21.0-32.0); Potassium 3.5 meq/L (3.5-5.1)
[2017-11-09 07:37] LABS: Lymphocytes 7 % (9-44); Metamyelocytes 1 % (0-1); Monocytes 2 % (0-8); Myelocytes 3 % (0-0); Ovalocytes 1+; Platelet Estimate Normal (Normal); Platelet Morphology Normal (Normal)
[2017-11-09 07:38] LABS: Toxic Vacuolation Present
[2017-11-09] MEDS: Lisinopril 20 MG Tablet PO SCH (08:31)
--- NOTE | 2017-11-09 11:06 | P.PNFP ---
Subjective Interval history: No acute events overnight. Remains afebrile, BPs stable ranging 90s-120s/50s overnight. Patient no longer tachycardic overnight. Patient seen and examined this AM. Reports discomfort along left lateral side along hematoma but no severe pain. Denies fevers, chills, palpitations. <Mark Dinhsh - 11/09/17 14:29> Results - Labs Result diagrams: 11/09/17 05:49 11/09/17 05:49 <Denis Foley - 11/09/17 17:51> Abnormal lab results 11/08/17 11/09/17 11/09/17 Range/Units 22:40 05:49 05:49 WBC 40.8 H (4.0-11.0) th/mm3 RDW 21.0 H (11.6-17.2) % Neut % (Auto) 85.8 H (16.0-70.0) % Neut # (Auto) 35.0 H (1.8-7.7) th/mm3 [place] # (Auto) 1.7 H (0.0-0.9) th/mm3 Seg Neuts % (Manual) 72 H (16-70) % Band Neuts % (Manual) 14 H (0-6) % Lymphocytes % (Manual) 7 L (9-44) % Myelocytes % (Man) 3 H (0-0) % Abs Neuts (Manual) 36.7 H (1.8-7.7) th/mm3 Toxic Vacuolation Present H (None) Ovalocytes 1+ H (None) Estimated GFR 64 L (>89) mL/min Lactic Acid 2.4 H (0.4-2.0) mmol/L Calcium 7.6 L (8.5-10.1) mg/dL Short CBC 11/09/17 Range/Units 05:49 WBC 40.8 H (4.0-11.0) th/mm3 Hgb 13.3 D (11.6-15.3) gm/dL Hct 41.2 (35.0-46.0) % Plt Count 156 (150-450) th/mm3 BMP 11/09/17 05:49 Sodium 140 Potassium 3.5 Chloride 106 Carbon Dioxide 24.8 BUN 11 Creatinine 0.87 Calcium 7.6 L <Denis Foley - 11/09/17 17:51> Abnormal lab results 11/08/17 11/08/17 11/08/17 Range/Units 11:15 11:15 11:58 WBC 57.8 H (4.0-11.0) th/mm3 RBC 5.59 H (4.00-5.30) mil/mm3 Hgb 15.9 H (11.6-15.3) gm/dL Hct 50.3 H (35.0-46.0) % MCHC 31.7 L (32.0-36.0) % RDW 21.6 H (11.6-17.2) % Neut % (Auto) (16.0-70.0) % Neut # (Auto) (1.8-7.7) th/mm3 [place] # (Auto) (0.0-0.9) th/mm3 Seg Neuts % (Manual) 90 H (16-70) % Band Neuts % (Manual) (0-6) % Lymphocytes % (Manual) 4 L (9-44) % Metamyelocytes % (Man) 3 H (0-1) % Myelocytes % (Man) 1 H (0-0) % Abs Neuts (Manual) 55.5 H (1.8-7.7) th/mm3 Nucleated RBCs/100 WBC 1 H (0-0) /100 WBC Toxic Vacuolation Present H (None) Ovalocytes (None) Carbon Dioxide 16.4 L (21.0-32.0) meq/L Anion Gap 21 H (5-15) meq/L Estimated GFR 61 L (>89) mL/min Lactic Acid (0.4-2.0) mmol/L Calcium 8.1 L (8.5-10.1) mg/dL Total Bilirubin 2.0 H (0.2-1.0) mg/dL Alkaline Phosphatase 138 H (45-117) U/L Urine Clarity Hazy H (Clear) Urine Protein 30 H (Neg-Trace) mg/dL Urine Ketones Trace H (Negative) mg/dL Urine Mucus Few H (Occasional) /lpf Serum Alcohol 47 H (0-5) mg/dL 11/08/17 11/09/17 11/09/17 Range/Units 22:40 05:49 05:49 WBC 40.8 H (4.0-11.0) th/mm3 RBC (4.00-5.30) mil/mm3 Hgb (11.6-15.3) gm/dL Hct (35.0-46.0) % MCHC (32.0-36.0) % RDW 21.0 H (11.6-17.2) % Neut % (Auto) 85.8 H (16.0-70.0) % Neut # (Auto) 35.0 H (1.8-7.7) th/mm3 [place] # (Auto) 1.7 H (0.0-0.9) th/mm3 Seg Neuts % (Manual) 72 H (16-70) % Band Neuts % (Manual) 14 H (0-6) % Lymphocytes % (Manual) 7 L (9-44) % Metamyelocytes % (Man) (0-1) % Myelocytes % (Man) 3 H (0-0) % Abs Neuts (Manual) 36.7 H (1.8-7.7) th/mm3 Nucleated RBCs/100 WBC (0-0) /100 WBC Toxic Vacuolation Present H (None) Ovalocytes 1+ H (None) Carbon Dioxide (21.0-32.0) meq/L Anion Gap (5-15) meq/L Estimated GFR 64 L (>89) mL/min Lactic Acid 2.4 H (0.4-2.0) mmol/L Calcium 7.6 L (8.5-10.1) mg/dL Total Bilirubin (0.2-1.0) mg/dL Alkaline Phosphatase (45-117) U/L Urine Clarity (Clear) Urine Protein (Neg-Trace) mg/dL Urine Ketones (Negative) mg/dL Urine Mucus (Occasional) /lpf Serum Alcohol (0-5) mg/dL Short CBC 11/08/17 11/09/17 Range/Units 11:15 05:49 WBC 57.8 H 40.8 H (4.0-11.0) th/mm3 Hgb 15.9 H 13.3 D (11.6-15.3) gm/dL Hct 50.3 H 41.2 (35.0-46.0) % Plt Count 194 156 (150-450) th/mm3 BMP 11/08/17 11/09/17 11:15 05:49 Sodium 137 140 Potassium 4.0 3.5 Chloride 100 106 Carbon Dioxide 16.4 L 24.8 BUN 9 11 Creatinine 0.91 0.87 Calcium 8.1 L 7.6 L Liver Function 11/08/17 Range/Units 11:15 Total Bilirubin 2.0 H (0.2-1.0) mg/dL AST 21 (15-37) U/L ALT 27 (10-53) U/L Alkaline Phosphatase 138 H (45-117) U/L Albumin 4.1 (3.4-5.0) g/dL Urine 11/08/17 Range/Units 11:58 Urine Color Yellow (Yellw/Straw) Urine Clarity Hazy H (Clear) Urine pH 5.0 (5.0-8.5) Ur Specific [place] 1.021 (1.002-1.035) Urine Protein 30 H (Neg-Trace) mg/dL Urine Glucose (UA) Negative (Negative) mg/dL <Mark Dinhsh - 11/09/17 11:05> - Imaging Impressions Abdomen/Pelvis CT 11/08/17 11:05 CONCLUSION: 1. Large subcutaneous hematoma over the left lateral abdomen adjacent to the anterior iliac bone. This measures up to at least 7.3 cm and there is surrounding inflammatory change. 2. No acute visceral injury. 3. Moderate hepatic steatosis. Hip X-Ray 11/08/17 11:05 CONCLUSION: Negative trauma study. <Troy Dinh - 11/09/17 11:05> Physical Exam Vital signs: Vital Signs 11/08/17 20:00 11/09/17 00:00 11/09/17 04:00 Temperature 98.9 F 98.5 F 98.2 F Pulse Rate 110 H 87 88 Respiratory Rate 18 17 17 Blood Pressure 108/55 L 96/53 L 119/59 L Pulse Oximetry 96 98 94 L 11/09/17 08:00 11/09/17 12:00 11/09/17 16:00 Temperature 98.3 F 99.1 F 99.4 F Pulse Rate 91 H 93 H 98 H Respiratory Rate 17 18 18 Blood Pressure 123/53 L 104/56 L 129/61 Pulse Oximetry 98 97 98 Intake & Output 11/08/17 11/09/17 11/09/17 18:59 06:59 18:59 Intake Total 3654 / 3654 1995 Balance 3653 Weight 54.431 kg 54.4 kg Intake: IV 3653 NS Inj 1,000 ML @ 150 mls/hr IV 2304 / 2304 1696 / 1696 .CONT .Q6H40M RULA Rx#:[id number] Cleocin 600 mg/NS Premix 600 mg 100 / 100 50 / 50 In 50 ml @ 100 mls/hr IV.SIG Q8H RULA Rx#:[id number] LR 1000 mL Inj 1,000 ML @ Wide 1000 / 1000 Open IV.SIG BOLUS ONE Rx#: [id number] Vancomycin Inj 1,000 MG In NS 250 / 250 250 / 250 Inj 250 ML @ 250 mls/hr IV.SIG Q18H RULA Rx#:[id number] Other: # Voids 1 7 Date of Last Bowel Movement 11/08/17 11/08/17 # Bowel Movements 3 <MaryjoshDenis K - 11/09/17 17:51> Vital Signs 11/08/17 15:44 11/08/17 16:00 11/08/17 20:00 Temperature 98.9 F 98.9 F Pulse Rate 119 H 112 H 110 H Respiratory Rate 16 16 18 Blood Pressure 151/73 H 162/79 H 108/55 L Pulse Oximetry 96 94 L 96 11/09/17 00:00 11/09/17 04:00 11/09/17 08:00 Temperature 98.5 F 98.2 F 98.3 F Pulse Rate 87 88 91 H Respiratory Rate 17 17 17 Blood Pressure 96/53 L 119/59 L 123/53 L Pulse Oximetry 98 94 L 98 Intake & Output 11/08/17 11/09/17 11/09/17 18:59 06:59 18:59 Intake Total 3653 / 3653 696 / 696 Balance 3653 / 69 Weight 54.431 kg 54.4 kg Intake: IV 3653 / 3653 / 696 NS Inj 1,000 ML @ 150 mls/hr IV 2304 / 2304 69 / 696 .CONT .Q6H40M RULA Rx#:[id number] Cleocin 600 mg/NS Premix 600 mg 100 / 100 In 50 ml @ 100 mls/hr IV.SIG Q8H RULA Rx#:[id number] LR 1000 mL Inj 1,000 ML @ Wide 1000 / 1000 Open IV.SIG BOLUS ONE Rx#: [id number] Vancomycin Inj 1,000 MG In NS 250 / 250 Inj 250 ML @ 200 mls/hr IV.SIG ONCE ONE Rx#:[id number] Other: # Voids 1 7 Date of Last Bowel Movement 11/08/17 11/08/17 # Bowel Movements 3 <Troy Dinh - 11/09/17 11:05> Narrative: General: Elderly, pleasant, female resting comfortably in bed Skin: hematoma located on left hip radiating to midline of back and left thigh, small area of broken skin with surrounding induration mildly tender to palpation. HEENT: EOMI, no lymphadenopathy, throat clear Cardio: Regular rate and rhythm, no murmurs rubs or gallops Pulmonary: Clear to auscultation bilaterally, no wheezes or crackles Abdomen: Soft, tender around hematoma, nondistended Extremities: No cyanosis or edema Neuro: Alert and oriented <Mark Dinhsh - 11/09/17 14:29> Assessment and Plan - Assessment (1) Hip hematoma, left Code(s): S70.02XA - Contusion of left hip, initial encounter Status: Acute (2) Leukocytosis Code(s): D72.829 - Elevated white blood cell count, unspecified Status: Acute (3) Polycythemia Code(s): D75.1 - Secondary polycythemia Status: Acute (4) HTN (hypertension) Code(s): I10 - Essential (primary) hypertension Status: Acute (5) Nutrition, metabolism, and development symptoms Code(s): R63.8 - Other symptoms and signs concerning food and fluid intake Status: Acute (6) Alcohol use Code(s): Z78.9 - Other specified health status Status: Acute <Denis Foley - 11/09/17 17:51> (1) Hip hematoma, left Code(s): S70.02XA - Contusion of left hip, initial encounter Status: Acute (2) Leukocytosis Code(s): D72.829 - Elevated white blood cell count, unspecified Status: Acute (3) Polycythemia Code(s): D75.1 - Secondary polycythemia Status: Acute (4) HTN (hypertension) Code(s): I10 - Essential (primary) hypertension Status: Acute (5) Nutrition, metabolism, and development symptoms Code(s): R63.8 - Other symptoms and signs concerning food and fluid intake Status: Acute (6) Alcohol use Code(s): Z78.9 - Other specified health status Status: Acute <Troy Dinh - 11/09/17 14:04> - Assessment and Plan 72-year-old female presented to the ED due to pain of left hip secondary to fall. Negative for fracture. Patient found to have leukocytosis and polycythemia on CBC. Patient admitted for further workup. Leukocytosis -CBC with differential demonstrates WBC of 57.8, presence of metamyelocytes, myelocytes, and neutrophilia. Suspecting myeloproliferative disorder. -Patient denies B symptoms -Peripheral smear ordered, pending -Consider consultation with hem/onc, WBC significantly improved today however still markedly elevated. Patient remains asymptomatic Polycythemia, resolved -CBC with differential demonstrated hemoglobin of 15.9 and hematocrit of 50.3 on admission -Improved on cbc today, consider due to dilutional component due to IV fluid administration -Continue to monitor -Plan as above Hematoma of left hip -25 x 27 cm hematoma present on the left hip -Hip x-ray negative for fracture -Plt level of 194 -Coagulation profile wnl -Continue supportive therapy -Discussed with IR need for drainage, will hold off on drainage as patient remains with stable vitals and exam unchanged Hypertension -Blood pressure ranging 150-160s/70-90s -Patient is currently not on any antihypertensives at home -BMP demonstrates BUN of 9 and Cr of 0.91 -Start patient on lisinopril 20 mg -Clonidine 0.1 mg as needed for BP>180/100 Alcohol use -Patient states that she drinks about 1-3 beers and 1 glass of vodka every night -[facility] protocol in place Diet: Regular diet Fluids: P.o. hydration Vitals every 4, monitor I's and O's DVT prophylaxis: SCDs only <Troy Dinh - 11/09/17 14:29> - Attending Attestation The exam, history, and the medical decision-making described in the above note were completed with the assistance of the resident physician. I reviewed and agree with the findings presented. I attest that I had a [id number] encounter with the patient on the same day, and personally performed and documented my assessment and findings in the medical record. Agree with above except that I still favor a leukemoid reaction from her cellulitis than myeloproliferative disorder. Still with very large predominance of neutrophils, toxic vacuoles, with bands. Leukocytosis decreased today by 10, 000 in about 12 hours after starting abx, and anion gap decreased from 21 to 7, and tachycardia resolved. On exam still erythematous and tender in ecchymotic area but slightly less erythematous today. CT not consistent with abscess and she is stable. There is a superficial area of fluctuance that we will watch and may need I &D and culture if growing tomorrow. Still no signs of instability suggesting nec fasc. Will continue vancomycin and clinda today and likely de- escalate to one IV drug tomorrow and transition to PO. I do agree however that we will need to consult hematology if WBC does not continue to trend down with treatment. <Denis Foley - 11/09/17 17:51>
[2017-11-09] MEDS: Vancomycin Inj 1,000 MG in Sodium Chlor 0.9% Inj 250 ML IV.SIG SCH (15:08)
[2017-11-09] MEDS: Lisinopril 10 MG Tablet PO SCH (21:10)
[2017-11-10] MEDS: Sod Chloride 0.9% Inj 1,000 ML IV.CONT SCH ×3 (06:24→16:37)
[2017-11-10] MEDS: Clindamycin 600 mg/NS Premix 600 MG/50 ML PIGGYBACK IV.SIG SCH ×2 (06:31→13:38)
[2017-11-10 07:56] LABS: Baso # (Auto) 0.2 th/mm3 (0.0-0.2); Baso % (Auto) 0.6 % (0.0-2.0); Eos # (Auto) 0.1 th/mm3 (0.0-0.4); Eos % (Auto) 0.4 % (0.0-4.0); Hematocrit 36.4 % (35.0-46.0); Hemoglobin 11.7 gm/dL (11.6-15.3); Lymph # (Auto) 2.4 th/mm3 (1.0-4.8); Lymph % (Auto) 8.5 % (9.0-44.0); Mean Corpuscular HGB Conc 32.1 % (32.0-36.0); Mean Corpuscular Hemoglobin 28.9 pg (27.0-34.0); Mean Corpuscular Volume 90.2 fL (80.0-100.0); Mean Platelet Volume 8.8 fL (7.0-11.0); Mono # (Auto) 0.8 th/mm3 (0.0-0.9); Neut # (Auto) 24.3 th/mm3 (1.8-7.7); Neut % (Auto) 87.5 % (16.0-70.0); Platelet Count 122 th/mm3 (150-450); Red Blood Count 4.03 mil/mm3 (4.00-5.30); Red Cell Distribution Width 20.7 % (11.6-17.2); White Blood Count 27.8 th/mm3 (4.0-11.0)
[2017-11-10 08:21] LABS: Calcium 7.4 mg/dL (8.5-10.1); Carbon Dioxide 23.4 meq/L (21.0-32.0); Potassium 3.3 meq/L (3.5-5.1)
[2017-11-10 08:38] LABS: Total Protein 5.3 g/dL (6.4-8.2)
[2017-11-10] MEDS: Lisinopril 10 MG Tablet PO SCH (08:47)
[2017-11-10] MEDS: Vancomycin Inj 1,000 MG in Sodium Chlor 0.9% Inj 250 ML IV.SIG SCH (08:47)
[2017-11-10 09:10] LABS: Lymphocytes 13 % (9-44); Monocytes 1 % (0-8); Promyelocyte 1 % (0-0); Tallied Nucleated RBC 2 (0-0)
[2017-11-10 09:11] LABS: Ovalocytes 1+; Platelet Morphology Normal (Normal)
[2017-11-10] MEDS: Calcium Carbonate 500 MG Tablet PO SCH (13:21)
[2017-11-10] MEDS ORDERED: Lidocaine 2%/Epinephrine 1:100,000 Inj 20 ML Vial INFILTRATN ONE (13:40)
--- NOTE | 2017-11-10 17:10 | P.PNFP ---
Subjective Interval history: No acute events overnight. Patient continues to be without pain while not moving. Decreased pain with motion today. She denies fever and chills. <Antelmo Cantrell - 11/10/17 17:10> Results - Labs Result diagrams: 11/10/17 07:11 11/10/17 07:11 <OgDenis David - 11/10/17 21:03> Abnormal lab results 11/10/17 11/10/17 Range/Units 07:11 07:11 WBC 27.8 H (4.0-11.0) th/mm3 RDW 20.7 H (11.6-17.2) % Plt Count 122 L (150-450) th/mm3 Neut % (Auto) 87.5 H (16.0-70.0) % Lymph % (Auto) 8.5 L (9.0-44.0) % Neut # (Auto) 24.3 H (1.8-7.7) th/mm3 Seg Neuts % (Manual) 76 H (16-70) % Band Neuts % (Manual) 9 H (0-6) % Promyelocytes % (Man) 1 H (0-0) % Abs Neuts (Manual) 23.9 H (1.8-7.7) th/mm3 Nucleated RBCs/100 WBC 2 H (0-0) /100 WBC Platelet Estimate Low L (Normal) Ovalocytes 1+ H (None) Potassium 3.3 L (3.5-5.1) meq/L Chloride 111 H (98-107) meq/L BUN 6 L (7-18) mg/dL Estimated GFR 83 L (>89) mL/min Calcium 7.4 L* (8.5-10.1) mg/dL Prot Corrected Calcium 8.4 L (8.5-10.1) mg/dL Total Protein 5.3 L D (6.4-8.2) g/dL Short CBC 11/10/17 Range/Units 07:11 WBC 27.8 H (4.0-11.0) th/mm3 Hgb 11.7 (11.6-15.3) gm/dL Hct 36.4 (35.0-46.0) % Plt Count 122 L (150-450) th/mm3 BMP 11/10/17 07:11 Sodium 143 Potassium 3.3 L Chloride 111 H Carbon Dioxide 23.4 BUN 6 L Creatinine 0.70 Calcium 7.4 L* <Denis Foley - 11/10/17 21:03> Abnormal lab results 11/10/17 11/10/17 Range/Units 07:11 07:11 WBC 27.8 H (4.0-11.0) th/mm3 RDW 20.7 H (11.6-17.2) % Plt Count 122 L (150-450) th/mm3 Neut % (Auto) 87.5 H (16.0-70.0) % Lymph % (Auto) 8.5 L (9.0-44.0) % Neut # (Auto) 24.3 H (1.8-7.7) th/mm3 Seg Neuts % (Manual) 76 H (16-70) % Band Neuts % (Manual) 9 H (0-6) % Promyelocytes % (Man) 1 H (0-0) % Abs Neuts (Manual) 23.9 H (1.8-7.7) th/mm3 Nucleated RBCs/100 WBC 2 H (0-0) /100 WBC Platelet Estimate Low L (Normal) Ovalocytes 1+ H (None) Potassium 3.3 L (3.5-5.1) meq/L Chloride 111 H (98-107) meq/L BUN 6 L (7-18) mg/dL Estimated GFR 83 L (>89) mL/min Calcium 7.4 L* (8.5-10.1) mg/dL Prot Corrected Calcium 8.4 L (8.5-10.1) mg/dL Total Protein 5.3 L D (6.4-8.2) g/dL Short CBC 11/10/17 Range/Units 07:11 WBC 27.8 H (4.0-11.0) th/mm3 Hgb 11.7 (11.6-15.3) gm/dL Hct 36.4 (35.0-46.0) % Plt Count 122 L (150-450) th/mm3 [facility] 11/10/17 07:11 Sodium 143 Potassium 3.3 L Chloride 111 H Carbon Dioxide 23.4 BUN 6 L Creatinine 0.70 Calcium 7.4 L* <Antelmo Cantrell - 11/10/17 17:10> Physical Exam Vital signs: Vital Signs 11/09/17 22:28 11/10/17 00:00 11/10/17 11:57 Temperature 98.4 F 98.5 F Pulse Rate 89 78 Respiratory Rate 17 16 Blood Pressure 126/68 151/72 H Pulse Oximetry 98 99 98 11/10/17 16:00 11/10/17 18:08 Temperature 99.2 F Pulse Rate 85 Respiratory Rate 17 Blood Pressure 146/70 H Pulse Oximetry 98 98 Intake & Output 11/10/17 11/10/17 11/11/17 06:59 18:59 06:59 Intake Total 2049 300 / 300 Balance 2049 300 / 300 Intake: IV 2049 300 / 300 NS Inj 1,000 ML @ 150 mls/hr IV 1999 .CONT .Q6H40M RULA Rx#:[id number] Cleocin 600 mg/NS Premix 600 mg 50 / 50 50 / 50 In 50 ml @ 100 mls/hr IV.SIG Q8H RULA Rx#:[id number] Vancomycin Inj 1,000 MG In NS 250 / 250 Inj 250 ML @ 250 mls/hr IV.SIG Q18H RULA Rx#:[id number] Other: Date of Last Bowel Movement 11/09/17 <Denis Foley 11/10/17 21:03> Vital Signs 11/09/17 20:00 11/09/17 22:28 11/10/17 00:00 Temperature 99.5 F 98.4 F Pulse Rate 98 H 89 Respiratory Rate 18 17 Blood Pressure 106/59 L 126/68 Pulse Oximetry 98 98 99 11/10/17 11:57 11/10/17 16:00 Temperature 98.5 F 99.2 F Pulse Rate 78 85 Respiratory Rate 16 17 Blood Pressure 151/72 H 146/70 H Pulse Oximetry 98 98 Intake & Output 11/09/17 11/10/17 11/10/17 18:59 06:59 18:59 Intake Total 2996 / 2996 2049 300 / 300 Balance 2996 / 2996 2049 300 / 300 Intake: IV 1995 300 / 300 NS Inj 1,000 ML @ 150 mls/hr IV 169 / 1696 1999 .CONT .Q6H40M RULA Rx#:[id number] Cleocin 600 mg/NS Premix 600 mg 50 / 50 50 / 50 50 / 50 In 50 ml @ 100 mls/hr IV.SIG Q8H RULA Rx#:[id number] Vancomycin Inj 1,000 MG In NS 250 / 250 250 / 250 Inj 250 ML @ 250 mls/hr IV.SIG Q18H RULA Rx#:[id number] Oral 1000 / 1000 Other: # Voids 3 Date of Last Bowel Movement 11/09/17 <Antelmo Cantrell - 11/10/17 17:10> Narrative: General: Alert and oriented, no acute distress, resting comfortably in bed Skin: hematoma located on left hip radiating to midline of back and left thigh, small area of broken skin with surrounding induration, mildly tender to palpation, with a large area of fluctuance. HEENT: Moist mucous membranes Cardio: Regular rate and rhythm, no murmurs rubs or gallops Pulmonary: Clear to auscultation bilaterally, nonlabored breathing, good air movement Abdomen: Soft, tender around hematoma, otherwise nontender to deep palpation, nondistended. Extremities: 2+ pedal pulses. No cyanosis or edema <Antelmo Cantrell - 11/10/17 17:10> Assessment and Plan - Assessment (1) Hip hematoma, left Code(s): S70.02XA - Contusion of left hip, initial encounter Status: Acute (2) Leukocytosis Code(s): D72.829 - Elevated white blood cell count, unspecified Status: Acute (3) Polycythemia Code(s): D75.1 - Secondary polycythemia Status: Acute (4) HTN (hypertension) Code(s): I10 - Essential (primary) hypertension Status: Acute (5) Nutrition, metabolism, and development symptoms Code(s): R63.8 - Other symptoms and signs concerning food and fluid intake Status: Acute (6) Alcohol use Code(s): Z78.9 - Other specified health status Status: Acute <Denis Foley - 11/10/17 21:03> (1) Hip hematoma, left Code(s): S70.02XA - Contusion of left hip, initial encounter Status: Acute (2) Leukocytosis Code(s): D72.829 - Elevated white blood cell count, unspecified Status: Acute (3) Polycythemia Code(s): D75.1 - Secondary polycythemia Status: Acute (4) HTN (hypertension) Code(s): I10 - Essential (primary) hypertension Status: Acute (5) Nutrition, metabolism, and development symptoms Code(s): R63.8 - Other symptoms and signs concerning food and fluid intake Status: Acute (6) Alcohol use Code(s): Z78.9 - Other specified health status Status: Acute <Antelmo Cantrell - 11/10/17 16:52> - Assessment and Plan 72-year-old female presented to the ED due to pain of left hip secondary to fall. Negative for fracture. Patient found to have leukocytosis and polycythemia on CBC. Patient admitted for further workup. Cellulitis / Hematoma of the left hip -WBC on admission of 58, now down to 28 -Peripheral smear showed occasional myelocytes and metamyelocytes -This is likely entirely secondary to infection, however other proliferative causes need to be considered still at this time -We will continue to follow blood cell count until discharge, and the likely will need to be followed as an outpatient as well -Significantly more fluctuance today than before -Clindamycin switched to p.o. and IV Vanco discontinued -I&D performed as noted below Hypertension -SBP high of 151 and low of 106 in the last 24 hours -Continue lisinopril 10 mg -Clonidine 0.1 mg as needed for BP>180/100 Diet: Regular diet Fluids: P.o. intake adequate Vitals every 4, monitor I's and O's DVT prophylaxis: SCDs only <Antelmo Cantrell - 11/10/17 17:10> - Attending Attestation The exam, history, and the medical decision-making described in the above note were completed with the assistance of the resident physician. I reviewed and agree with the findings presented. I attest that I had a [id number] encounter with the patient on the same day, and personally performed and documented my assessment and findings in the medical record. WBC still coming down significantly on IV antibiotics. on exam today affected area felt more fluctuant even than yesterday with very obvious erythema and even some serous drainage and two discrete areas of eschar formation. I&D performed but only seemed to express coagulated blood. dressed and wrapped with abdominal binder to hold pressure on hip. Will try to transition to PO clinda today and see how she tolerates. If WBC continues to trend down signifcantly tomorrow on PO antibiocs and 48 hrs of blood cx are negative than she may be able to leave on clindamycin and f/u with us as an outpatient to see WBC trend to normal. peripheral smear not suggestive of leukemia. <Denis Foley - 11/10/17 21:03> Procedures - Abscess I/D Site: other (Supraficial area lateral to the left hip was cleaned with iodine solution and draped and a sterile fashion. ) <Antelmo Cantrell 11/10/17 17:10> Side (if applicable): left <Antelmo Cantrell 11/10/17 17:10> Sedation/analgesia: none <Antelmo Cantrell 11/10/17 17:10> Anesthetic used: lidocaine 2% (with epi (15cc)) <Antelmo Cantrell 17:10> Technique: incised with #11 blade <Antelmo Cantrell 11/10/17 17:10> Amount of fluid (mL): 100 (Coagluated blood and sanguinous fluid) <Antelmo Cantrell 11/10/17 17:10> Irrigation: No <Antelmo Cantrell 11/10/17 17:10> Packing used?: none <Antelmo Cantrell 11/10/17 17:10> Complications: other (Blood was evacuated from the cavity, however hemostasis was promptly achieved) <Antelmo Cantrell 11/10/17 17:10>
[2017-11-11] MEDS ORDERED: Pharmacy Ordered Lab Info OTHER ONE (02:45)
[2017-11-11 05:32] LABS: Baso # (Auto) 0.1 th/mm3 (0.0-0.2); Baso % (Auto) 0.4 % (0.0-2.0); Eos # (Auto) 0.2 th/mm3 (0.0-0.4); Eos % (Auto) 0.6 % (0.0-4.0); Hematocrit 35.8 % (35.0-46.0); Hemoglobin 11.6 gm/dL (11.6-15.3); Lymph # (Auto) 3.2 th/mm3 (1.0-4.8); Lymph % (Auto) 11.7 % (9.0-44.0); Mean Corpuscular HGB Conc 32.5 % (32.0-36.0); Mean Corpuscular Hemoglobin 29.2 pg (27.0-34.0); Mean Corpuscular Volume 89.9 fL (80.0-100.0); Mean Platelet Volume 8.4 fL (7.0-11.0); Mono # (Auto) 0.8 th/mm3 (0.0-0.9); Mono % (Auto) 2.9 % (0.0-8.0); Neut # (Auto) 23.3 th/mm3 (1.8-7.7); Neut % (Auto) 84.4 % (16.0-70.0); Platelet Count 147 th/mm3 (150-450); Red Blood Count 3.98 mil/mm3 (4.00-5.30); Red Cell Distribution Width 21.4 % (11.6-17.2); White Blood Count 27.6 th/mm3 (4.0-11.0)
[2017-11-11 07:53] LABS: Lymphocytes 11 % (9-44); Metamyelocytes 1 % (0-1); Monocytes 2 % (0-8); Myelocytes 1 % (0-0); Ovalocytes 1+; Platelet Morphology Normal (Normal); Promyelocyte 1 % (0-0)
[2017-11-11] MEDS: Calcium Carbonate 500 MG Tablet PO SCH (08:56)
[2017-11-11] MEDS: Lisinopril 10 MG Tablet PO SCH (08:56)
--- NOTE | 2017-11-11 10:36 | P.PNFP ---
Subjective Interval history: Patient still feeling fine today. She has kept abdominal binder on. still some pain with movement over the area and an episode of loose stool overnight. Denies f/c/n/v/d. No orthostasis No symptoms of withdrawal and she has not withdrawn in the past. <Denis Foley David - 11/11/17 16:16> Results - Labs Result diagrams: 11/11/17 05:09 11/10/17 07:11 <OgDenis David - 11/11/17 16:16> Abnormal lab results 11/11/17 Range/Units 05:09 WBC 27.6 H (4.0-11.0) th/mm3 RBC 3.98 L (4.00-5.30) mil/mm3 RDW 21.4 H (11.6-17.2) % Plt Count 147 L (150-450) th/mm3 Neut % (Auto) 84.4 H (16.0-70.0) % Neut # (Auto) 23.3 H (1.8-7.7) th/mm3 Seg Neuts % (Manual) 76 H (16-70) % Band Neuts % (Manual) 7 H (0-6) % Myelocytes % (Man) 1 H (0-0) % Promyelocytes % (Man) 1 H (0-0) % Abs Neuts (Manual) 23.7 H (1.8-7.7) th/mm3 Platelet Estimate Low L (Normal) Ovalocytes 1+ H (None) Short CBC 11/11/17 Range/Units 05:09 WBC 27.6 H (4.0-11.0) th/mm3 Hgb 11.6 (11.6-15.3) gm/dL Hct 35.8 (35.0-46.0) % Plt Count 147 L (150-450) th/mm3 <Denis Foley - 11/11/17 16:16> Abnormal lab results 11/11/17 Range/Units 05:09 WBC 27.6 H (4.0-11.0) th/mm3 RBC 3.98 L (4.00-5.30) mil/mm3 RDW 21.4 H (11.6-17.2) % Plt Count 147 L (150-450) th/mm3 Neut % (Auto) 84.4 H (16.0-70.0) % Neut # (Auto) 23.3 H (1.8-7.7) th/mm3 Seg Neuts % (Manual) 76 H (16-70) % Band Neuts % (Manual) 7 H (0-6) % Myelocytes % (Man) 1 H (0-0) % Promyelocytes % (Man) 1 H (0-0) % Abs Neuts (Manual) 23.7 H (1.8-7.7) th/mm3 Platelet Estimate Low L (Normal) Ovalocytes 1+ H (None) Short CBC 11/11/17 Range/Units 05:09 WBC 27.6 H (4.0-11.0) th/mm3 Hgb 11.6 (11.6-15.3) gm/dL Hct 35.8 (35.0-46.0) % Plt Count 147 L (150-450) th/mm3 <Antelmo Cantrell - 11/11/17 10:36> Physical Exam Vital signs: Vital Signs 11/10/17 18:08 11/10/17 20:00 11/11/17 00:00 Temperature 99.5 F 99.6 F Pulse Rate 91 H 95 H Respiratory Rate 20 18 Blood Pressure 141/68 H 140/80 Pulse Oximetry 98 96 98 11/11/17 04:00 11/11/17 08:00 11/11/17 12:00 Temperature 97.7 F 98.8 F 98.0 F Pulse Rate 79 101 H 84 Respiratory Rate 18 18 18 Blood Pressure 138/70 136/66 143/67 H Pulse Oximetry 98 95 88 L 11/11/17 14:34 Temperature 97.9 F Pulse Rate 88 Respiratory Rate 17 Blood Pressure 178/79 H Pulse Oximetry 98 Intake & Output 11/10/17 11/11/17 11/11/17 18:59 06:59 18:59 Intake Total 300 / 300 960 / 960 Balance 300 / 300 960 / 960 Weight 58.3 kg Intake: IV 300 / 300 Cleocin 600 mg/NS Premix 600 mg 50 / 50 In 50 ml @ 100 mls/hr IV.SIG Q8H RULA Rx#:[id number] Vancomycin Inj 1,000 MG In NS 250 / 250 Inj 250 ML @ 250 mls/hr IV.SIG Q18H RULA Rx#:[id number] Oral 960 / 960 Other: # Voids 5 Date of Last Bowel Movement 11/11/17 11/11/17 # Bowel Movements 2 <Denis Foley David - 11/11/17 16:16> Vital Signs 11/10/17 11:57 11/10/17 16:00 11/10/17 18:08 Temperature 98.5 F 99.2 F Pulse Rate 78 85 Respiratory Rate 16 17 Blood Pressure 151/72 H 146/70 H Pulse Oximetry 98 98 98 11/10/17 20:00 11/11/17 00:00 11/11/17 04:00 Temperature 99.5 F 99.6 F 97.7 F Pulse Rate 91 H 95 H 79 Respiratory Rate 20 18 18 Blood Pressure 141/68 H 140/80 138/70 Pulse Oximetry 96 98 98 Intake & Output 11/10/17 11/11/17 11/11/17 18:59 06:59 18:59 Intake Total 300 / 300 960 / 960 Balance 300 / 300 960 / 960 Weight 58.3 kg Intake: IV 300 / 300 Cleocin 600 mg/NS Premix 600 mg 50 / 50 In 50 ml @ 100 mls/hr IV.SIG Q8H RULA Rx#:[id number] Vancomycin Inj 1,000 MG In NS 250 / 250 Inj 250 ML @ 250 mls/hr IV.SIG Q18H RULA Rx#:[id number] Oral 960 / 960 Other: # Voids 5 Date of Last Bowel Movement 11/11/17 11/11/17 # Bowel Movements 2 <Antelmo Cantrell - 11/11/17 10:36> Narrative: Gen NAD, alert HEENT EOMI CV: RRR no murmur, good cap refill Pulm: CTAB, no increased resp effort Abd: soft ntnd +bs, abd binder in place Skin: after removal of binder and dressings, coagulated blood exited incision immediately, Still very ecchymotic, with some interspersed erythema, difficult to assess growth as quickly as we re-covered it. Ext: no edema Neuro: MAEW, speech fluent Psych: appropriate mood and affect. <Denis Foley David - 11/11/17 16:15> Assessment and Plan - Assessment (1) Hip hematoma, left Code(s): S70.02XA - Contusion of left hip, initial encounter Status: Acute (2) Leukocytosis Code(s): D72.829 - Elevated white blood cell count, unspecified Status: Acute (3) Polycythemia Code(s): D75.1 - Secondary polycythemia Status: Acute (4) HTN (hypertension) Code(s): I10 - Essential (primary) hypertension Status: Acute (5) Nutrition, metabolism, and development symptoms Code(s): R63.8 - Other symptoms and signs concerning food and fluid intake Status: Acute (6) Alcohol use Code(s): Z78.9 - Other specified health status Status: Acute <Antelmo Cantrell - 11/11/17 10:36> - Assessment and Plan Cellulitis: improved vastly on vanc + clinda by labs. WBC decline plateaued after change to PO clinda only. Will monitor today with low threshold to restart IV abx Hematoma: Unfortunately, I&D revealed only coagulated blood with no purulence as we suspected additional abscess. This has recollected today, will keep compression bandage for 24 hours and monitor. Will Re-scan if appears to grow of hemoglobin continues to drop. Leukocytosis suspect leukomoid reaction. responded very well to antibiotics. Cont to monitor for decline. Hypertension cont lisinopril 10mg EtOH overuse: no signs of w/d, d/c CIWA DVT ppx: SCDs GI ppx : NI <Denis Foley David - 11/11/17 16:15> 72-year-old female presented to the ED due to pain of left hip secondary to fall. Negative for fracture. Patient found to have leukocytosis and polycythemia on CBC. Patient admitted for further workup. Cellulitis / Hematoma of the left hip -WBC on admission of 58, now down to 28 -Peripheral smear showed occasional myelocytes and metamyelocytes -This is likely entirely secondary to infection, however other proliferative causes need to be considered still at this time -We will continue to follow blood cell count until discharge, and the likely will need to be followed as an outpatient as well -Significantly more fluctuance today than before -Clindamycin switched to p.o. and IV Vanco discontinued -I&D performed as noted below Hypertension -SBP high of 151 and low of 106 in the last 24 hours -Continue lisinopril 10 mg -Clonidine 0.1 mg as needed for BP>180/100 Diet: Regular diet Fluids: P.o. intake adequate Vitals every 4, monitor I's and O's DVT prophylaxis: SCDs only <Antelmo Cantrell - 11/11/17 10:36> - Attending Attestation The exam, history, and the medical decision-making described in the above note were completed with the assistance of the resident physician. I reviewed and agree with the findings presented. I attest that I had a vndd-es-adyp encounter with the patient on the same day, and personally performed and documented my assessment and findings in the medical record. note written today by me. <Denis Foley - 11/11/17 16:15>
--- NOTE | 2017-11-11 16:29 | CT ---
EXAM DATE: 11/11/2017 3:57 PM EDT AGE/SEX: 72 years / Female INDICATIONS: Patient with worsening ecchymosis spreading to vaginal area and right leg. CLINICAL DATA: This is the patient's subsequent encounter. Patient reports that signs and symptoms h ave been present for 3 days and indicates a pain score of 4/10. MEDICAL/SURGICAL HISTORY: Hypertension. Left hip hematoma . Left hip hematoma with recent I&D RADIATION DOSE: 11.23 CTDI (mGy) [place] [facility] [place] 11/08/2017. . TECHNIQUE: Multiple contiguous axial images were obtained through the abdomen. Images were obtained using multiple row detector helical technique. Using automated exposure control and adjustment of the mA and/or kV according to patient size, radiation dose was kept as low as reasonably achievable to o btain optimal diagnostic quality images. DICOM format image data is available electronically for rev iew and comparison. FINDINGS: Lower Lungs: The visualized lower lungs are clear. Liver: The liver is enlarged and demonstrates diffuse fatty infiltration. No biliary ductal dilatatio n is noted. The gallbladder appears to contain some sludge. Spleen: The spleen is mildly enlarged. Pancreas: Unremarkable without mass or calcification. Kidneys: Normal in size and shape. No evidence of mass or hydronephrosis. Adrenal Glands: Unremarkable. Aorta: The aorta and proximal iliac vessels are grossly unremarkable without aneurysmal dilation. Bowel/Mesentery: The bowel loops are grossly unremarkable. The cecum and sigmoid colon have a normal configuration. Abdominal Wall: There is a large subcutaneous hematoma overlying the left iliac bone laterally which measures 8.6 x 3.8 cm. Subcutaneous edema is noted throughout the pelvis. Retroperitoneum: No evidence of adenopathy in the retrocrural, para-aortic, or deep pelvic regions. Bladder: Contours are smooth. Reproductive Organs: No abnormal masses or calcifications seen. Inguinal: The inguinal region is unremarkable without evidence of adenopathy. Bony Structures: Degenerative changes and scoliosis of the lumbar spine are noted. CONCLUSION: 1. Large subcutaneous hematoma overlying the left iliac bone laterally which measures 8.6 x 3.8 cm. and has decreased slightly in size compared to 11/08/2017. Subcutaneous edema is noted throughout the pelvis. 2. Enlarged fatty liver. 3. Mild splenomegaly. 4. Gallbladder sludge. Electronically signed by: Ben Hameed MD 11/11/2017 4:28 PM EDT
[2017-11-11 16:37] LABS: Baso # (Auto) 0.2 th/mm3 (0.0-0.2); Baso % (Auto) 0.5 % (0.0-2.0); Eos # (Auto) 0.1 th/mm3 (0.0-0.4); Eos % (Auto) 0.2 % (0.0-4.0); Hematocrit 38.9 % (35.0-46.0); Hemoglobin 12.4 gm/dL (11.6-15.3); Lymph # (Auto) 2.9 th/mm3 (1.0-4.8); Lymph % (Auto) 8.1 % (9.0-44.0); Mean Corpuscular HGB Conc 31.8 % (32.0-36.0); Mean Corpuscular Volume 91.1 fL (80.0-100.0); Mono # (Auto) 1.1 th/mm3 (0.0-0.9); Mono % (Auto) 3.2 % (0.0-8.0); Neut # (Auto) 31.3 th/mm3 (1.8-7.7); Platelet Count 193 th/mm3 (150-450); Red Blood Count 4.27 mil/mm3 (4.00-5.30); Red Cell Distribution Width 21.7 % (11.6-17.2); White Blood Count 35.5 th/mm3 (4.0-11.0)
[2017-11-11] MEDS ORDERED: Vancomycin Consult Pharmacy OTHER PRN (16:39)
[2017-11-11 16:45] LABS: Calcium 9.2 mg/dL (8.5-10.1); Carbon Dioxide 25.6 meq/L (21.0-32.0); Potassium 3.4 meq/L (3.5-5.1)
[2017-11-11 17:23] LABS: Lymphocytes 10 % (9-44); Metamyelocytes 2 % (0-1); Monocytes 6 % (0-8); Platelet Estimate Normal (Normal)
[2017-11-11 17:24] LABS: Ovalocytes 1+
[2017-11-11 17:25] LABS: Spherocytes 1+
[2017-11-11] MEDS: Clindamycin 600 mg/NS Premix 600 MG/50 ML PIGGYBACK IV.SIG SCH (18:58)
[2017-11-11] MEDS: Vancomycin Inj 1,000 MG in Sodium Chlor 0.9% Inj 250 ML IV.SIG SCH (18:58)
[2017-11-12] MEDS: Clindamycin 600 mg/NS Premix 600 MG/50 ML PIGGYBACK IV.SIG SCH ×3 (01:18→19:11)
[2017-11-12 05:36] LABS: Baso # (Auto) 0.2 th/mm3 (0.0-0.2); Baso % (Auto) 0.6 % (0.0-2.0); Eos # (Auto) 0.2 th/mm3 (0.0-0.4); Eos % (Auto) 0.5 % (0.0-4.0); Hematocrit 34.1 % (35.0-46.0); Hemoglobin 11.2 gm/dL (11.6-15.3); Lymph # (Auto) 2.9 th/mm3 (1.0-4.8); Lymph % (Auto) 9.7 % (9.0-44.0); Mean Corpuscular HGB Conc 32.8 % (32.0-36.0); Mean Corpuscular Hemoglobin 29.3 pg (27.0-34.0); Mean Corpuscular Volume 89.2 fL (80.0-100.0); Mean Platelet Volume 8.8 fL (7.0-11.0); Mono # (Auto) 1.1 th/mm3 (0.0-0.9); Mono % (Auto) 3.8 % (0.0-8.0); Neut # (Auto) 25.6 th/mm3 (1.8-7.7); Neut % (Auto) 85.4 % (16.0-70.0); Platelet Count 165 th/mm3 (150-450); Red Blood Count 3.82 mil/mm3 (4.00-5.30); Red Cell Distribution Width 21.5 % (11.6-17.2)
[2017-11-12 05:54] LABS: Calcium 8.4 mg/dL (8.5-10.1); Carbon Dioxide 26.7 meq/L (21.0-32.0); Potassium 3.8 meq/L (3.5-5.1)
[2017-11-12 07:32] LABS: Eosinophils 1 % (0-4); Lymphocytes 9 % (9-44); Monocytes 1 % (0-8); Myelocytes 3 % (0-0); Tallied Nucleated RBC 3 (0-0)
[2017-11-12 07:34] LABS: Ovalocytes 1+; Toxic Vacuolation Present
[2017-11-12 07:35] LABS: Platelet Estimate Normal (Normal); Platelet Morphology Normal (Normal)
[2017-11-12] MEDS: Calcium Carbonate 500 MG Tablet PO SCH (08:07)
[2017-11-12] MEDS: Lisinopril 20 MG Tablet PO SCH (08:07)
--- NOTE | 2017-11-12 10:05 | P.PNFP ---
Subjective Interval history: No acute events overnight. Patient resting in bed. at bedside. Patient currently has no complaints. States that her ecchymosis/cellulitis appears the same. appears very anxious and has a lot of questions. Patient denies fevers, chest pain, shortness of breath, nausea vomiting, and abdominal pain. <Amanda Park T - 11/12/17 10:21> Results - Labs Result diagrams: 11/12/17 05:10 11/12/17 09:34 <Denis Foley - 11/12/17 14:09> Abnormal lab results 11/11/17 11/11/17 11/12/17 Range/Units 15:42 15:42 05:10 WBC 35.5 H 30.0 H (4.0-11.0) th/mm3 RBC 3.82 L (4.00-5.30) mil/mm3 Hgb 11.2 L (11.6-15.3) gm/dL Hct 34.1 L (35.0-46.0) % MCHC 31.8 L (32.0-36.0) % RDW 21.7 H 21.5 H (11.6-17.2) % Neut % (Auto) 88.0 H 85.4 H (16.0-70.0) % Lymph % (Auto) 8.1 L (9.0-44.0) % Neut # (Auto) 31.3 H 25.6 H (1.8-7.7) th/mm3 [place] # (Auto) 1.1 H 1.1 H (0.0-0.9) th/mm3 Seg Neuts % (Manual) 71 H 84 H (16-70) % Band Neuts % (Manual) 11 H (0-6) % Metamyelocytes % (Man) 2 H (0-1) % Myelocytes % (Man) 3 H (0-0) % Abs Neuts (Manual) 29.8 H 26.7 H (1.8-7.7) th/mm3 Nucleated RBCs/100 WBC 3 H (0-0) /100 WBC Toxic Vacuolation Present H (None) Platelet Morphology Enlarged H (Normal) Spherocytes 1+ H (None) Ovalocytes 1+ H 1+ H (None) Potassium 3.4 L (3.5-5.1) meq/L Chloride (98-107) meq/L BUN 6 L (7-18) mg/dL Estimated GFR 69 L (>89) mL/min Random Glucose 110 H (74-106) mg/dL Calcium (8.5-10.1) mg/dL 11/12/17 11/12/17 Range/Units 05:10 09:34 WBC (4.0-11.0) th/mm3 RBC (4.00-5.30) mil/mm3 Hgb (11.6-15.3) gm/dL Hct (35.0-46.0) % MCHC (32.0-36.0) % RDW (11.6-17.2) % Neut % (Auto) (16.0-70.0) % Lymph % (Auto) (9.0-44.0) % Neut # (Auto) (1.8-7.7) th/mm3 [place] # (Auto) (0.0-0.9) th/mm3 Seg Neuts % (Manual) (16-70) % Band Neuts % (Manual) (0-6) % Metamyelocytes % (Man) (0-1) % Myelocytes % (Man) (0-0) % Abs Neuts (Manual) (1.8-7.7) th/mm3 Nucleated RBCs/100 WBC (0-0) /100 WBC Toxic Vacuolation (None) Platelet Morphology (Normal) Spherocytes (None) Ovalocytes (None) Potassium (3.5-5.1) meq/L Chloride 108 H (98-107) meq/L BUN 6 L (7-18) mg/dL Estimated GFR 81 L 76 L (>89) mL/min Random Glucose (74-106) mg/dL Calcium 8.4 L D (8.5-10.1) mg/dL Short CBC 11/11/17 11/11/17 11/12/17 Range/Units 15:42 15:42 05:10 WBC 35.5 H 30.0 H (4.0-11.0) th/mm3 Hgb Cancelled 12.4 11.2 L Hct Cancelled 38.9 34.1 L Plt Count 193 D 165 (150-450) th/mm3 BMP 11/11/17 11/12/17 11/12/17 15:42 05:10 09:34 Sodium 141 144 142 Potassium 3.4 L 3.8 3.6 Chloride 106 108 H 107 Carbon Dioxide 25.6 26.7 27.2 BUN 6 L 7 6 L Creatinine 0.82 0.71 0.75 Calcium 9.2 D 8.4 L D 9.2 D <Denis Foley - 11/12/17 14:09> Abnormal lab results 11/11/17 11/11/17 11/12/17 Range/Units 15:42 15:42 05:10 WBC 35.5 H 30.0 H (4.0-11.0) th/mm3 RBC 3.82 L (4.00-5.30) mil/mm3 Hgb 11.2 L (11.6-15.3) gm/dL Hct 34.1 L (35.0-46.0) % MCHC 31.8 L (32.0-36.0) % RDW 21.7 H 21.5 H (11.6-17.2) % Neut % (Auto) 88.0 H 85.4 H (16.0-70.0) % Lymph % (Auto) 8.1 L (9.0-44.0) % Neut # (Auto) 31.3 H 25.6 H (1.8-7.7) th/mm3 [place] # (Auto) 1.1 H 1.1 H (0.0-0.9) th/mm3 Seg Neuts % (Manual) 71 H 84 H (16-70) % Band Neuts % (Manual) 11 H (0-6) % Metamyelocytes % (Man) 2 H (0-1) % Myelocytes % (Man) 3 H (0-0) % Abs Neuts (Manual) 29.8 H 26.7 H (1.8-7.7) th/mm3 Nucleated RBCs/100 WBC 3 H (0-0) /100 WBC Toxic Vacuolation Present H (None) Platelet Morphology Enlarged H (Normal) Spherocytes 1+ H (None) Ovalocytes 1+ H 1+ H (None) Potassium 3.4 L (3.5-5.1) meq/L Chloride (98-107) meq/L BUN 6 L (7-18) mg/dL Estimated GFR 69 L (>89) mL/min Random Glucose 110 H (74-106) mg/dL Calcium (8.5-10.1) mg/dL 11/12/17 Range/Units 05:10 WBC (4.0-11.0) th/mm3 RBC (4.00-5.30) mil/mm3 Hgb (11.6-15.3) gm/dL Hct (35.0-46.0) % MCHC (32.0-36.0) % RDW (11.6-17.2) % Neut % (Auto) (16.0-70.0) % Lymph % (Auto) (9.0-44.0) % Neut # (Auto) (1.8-7.7) th/mm3 [place] # (Auto) (0.0-0.9) th/mm3 Seg Neuts % (Manual) (16-70) % Band Neuts % (Manual) (0-6) % Metamyelocytes % (Man) (0-1) % Myelocytes % (Man) (0-0) % Abs Neuts (Manual) (1.8-7.7) th/mm3 Nucleated RBCs/100 WBC (0-0) /100 WBC Toxic Vacuolation (None) Platelet Morphology (Normal) Spherocytes (None) Ovalocytes (None) Potassium (3.5-5.1) meq/L Chloride 108 H (98-107) meq/L BUN (7-18) mg/dL Estimated GFR 81 L (>89) mL/min Random Glucose (74-106) mg/dL Calcium 8.4 L D (8.5-10.1) mg/dL Short CBC 11/11/17 11/11/17 11/12/17 Range/Units 15:42 15:42 05:10 WBC 35.5 H 30.0 H (4.0-11.0) th/mm3 Hgb Cancelled 12.4 11.2 L Hct Cancelled 38.9 34.1 L Plt Count 193 D 165 (150-450) th/mm3 BMP 11/11/17 11/12/17 15:42 05:10 Sodium 141 144 Potassium 3.4 L 3.8 Chloride 106 108 H Carbon Dioxide 25.6 26.7 BUN 6 L 7 Creatinine 0.82 0.71 Calcium 9.2 D 8.4 L D <Amanda Park T - 11/12/17 10:05> - Imaging Impressions Abdomen/Pelvis CT 11/11/17 15:06 CONCLUSION: 1. Large subcutaneous hematoma overlying the left iliac bone laterally which measures 8.6 x 3.8 cm. and has decreased slightly in size compared to 2017. Subcutaneous edema is noted throughout the pelvis. 2. Enlarged fatty liver. 3. Mild splenomegaly. 4. Gallbladder sludge. <Denis Foley - 11/12/17 14:09> Impressions Abdomen/Pelvis CT 11/11/17 15:06 CONCLUSION: 1. Large subcutaneous hematoma overlying the left iliac bone laterally which measures 8.6 x 3.8 cm. and has decreased slightly in size compared to 2017. Subcutaneous edema is noted throughout the pelvis. 2. Enlarged fatty liver. 3. Mild splenomegaly. 4. Gallbladder sludge. <Amanda Park Kenyatta - 11/12/17 10:05> Physical Exam Vital signs: Vital Signs 11/11/17 14:34 11/11/17 20:00 11/12/17 00:00 Temperature 97.9 F 97.8 F 97.7 F Pulse Rate 88 89 86 Respiratory Rate 17 18 18 Blood Pressure 178/79 H 139/67 137/64 Pulse Oximetry 98 99 100 11/12/17 04:00 11/12/17 08:00 11/12/17 12:00 Temperature 97.8 F 99.1 F 98.4 F Pulse Rate 85 90 84 Respiratory Rate 18 18 18 Blood Pressure 132/70 134/64 134/67 Pulse Oximetry 100 94 L 95 Intake & Output 11/11/17 11/12/17 11/12/17 18:59 06:59 18:59 Intake Total 350 / 350 Balance 350 / 350 Weight 60.9 kg Intake: IV 350 / 350 Cleocin 600 mg/NS Premix 600 mg 100 / 100 In 50 ml @ 100 mls/hr IV.SIG Q8H RULA Rx#:[id number] Vancomycin Inj 1,000 MG In NS 250 / 250 Inj 250 ML @ 250 mls/hr IV.SIG Q24H RULA Rx#:[id number] Other: # Voids 5 2 Date of Last Bowel Movement 11/11/17 11/11/17 <Denis Foley - 11/12/17 14:09> Vital Signs 11/11/17 12:00 11/11/17 14:34 11/11/17 20:00 Temperature 98.0 F 97.9 F 97.8 F Pulse Rate 84 88 89 Respiratory Rate 18 18 Blood Pressure 143/67 H 178/79 H 139/67 Pulse Oximetry 88 L 98 99 11/12/17 00:00 11/12/17 04:00 11/12/17 08:00 Temperature 97.7 F 97.8 F 99.1 F Pulse Rate 86 85 90 Respiratory Rate 18 18 Blood Pressure 137/64 132/70 134/64 Pulse Oximetry 100 100 94 L Intake & Output 11/11/17 11/12/17 11/12/17 18:59 06:59 18:59 Intake Total 350 / 350 Balance 350 / 350 Weight 60.9 kg Intake: IV 350 / 350 Cleocin 600 mg/NS Premix 600 mg 100 / 100 In 50 ml @ 100 mls/hr IV.SIG Q8H RULA Rx#:[id number] Vancomycin Inj 1,000 MG In NS 250 / 250 Inj 250 ML @ 250 mls/hr IV.SIG Q24H RULA Rx#:[id number] Other: # Voids 5 2 Date of Last Bowel Movement 11/11/17 11/11/17 <Amanda Park T - 11/12/17 10:05> Narrative: Gen NAD, alert CV: RRR no murmur, good cap refill Pulm: CTAB, no increased resp effort Abd: soft ntnd +bs, abd binder in place Skin: Ecchymosis and underlying erythema located around the left hip and midline back, expanding to vaginal area and right hip. Binder and dressing in place status post I&D 2 days ago. Ext: no edema <Amanda Park T - 11/12/17 10:21> Assessment and Plan - Assessment (1) Hip hematoma, left Code(s): S70.02XA - Contusion of left hip, initial encounter Status: Acute (2) Leukocytosis Code(s): D72.829 - Elevated white blood cell count, unspecified Status: Acute (3) Polycythemia Code(s): D75.1 - Secondary polycythemia Status: Acute (4) HTN (hypertension) Code(s): I10 - Essential (primary) hypertension Status: Acute (5) Nutrition, metabolism, and development symptoms Code(s): R63.8 - Other symptoms and signs concerning food and fluid intake Status: Acute (6) Alcohol use Code(s): Z78.9 - Other specified health status Status: Acute <Denis Foley K - 11/12/17 14:09> (1) Hip hematoma, left Code(s): S70.02XA - Contusion of left hip, initial encounter Status: Acute (2) Leukocytosis Code(s): D72.829 - Elevated white blood cell count, unspecified Status: Acute (3) Polycythemia Code(s): D75.1 - Secondary polycythemia Status: Acute (4) HTN (hypertension) Code(s): I10 - Essential (primary) hypertension Status: Acute (5) Nutrition, metabolism, and development symptoms Code(s): R63.8 - Other symptoms and signs concerning food and fluid intake Status: Acute (6) Alcohol use Code(s): Z78.9 - Other specified health status Status: Acute <Jacqueline Parktomasz Meyer T - 11/12/17 10:12> - Assessment and Plan 72-year-old female presented to the ED due to pain of left hip secondary to fall. Negative for fracture. Patient found to have leukocytosis and polycythemia on CBC. Patient admitted for further workup. Cellulitis: Patient restarted on Vanc and IV clinda due to worsening ecchymosis with underlying edema Consider consult to ID for duration of abx Hematoma: Unfortunately, I&D revealed only coagulated blood with no purulence as we suspected additional abscess. Leukocytosis suspect leukomoid reaction. responded very well to antibiotics. Cont to monitor for decline. Hypertension Lisinopril increased to 20mg Clonidine 0.1 mg PRN EtOH overuse: no signs of w/d, d/c CIWA DVT ppx: SCDs GI ppx : NI <XavierJoseAmandavilma Meyer T - 11/12/17 10:21> - Attending Attestation The exam, history, and the medical decision-making described in the above note were completed with the assistance of the resident physician. I reviewed and agree with the findings presented. I attest that I had a hecd-io-tmvz encounter with the patient on the same day, and personally performed and documented my assessment and findings in the medical record. Agree with above. Patient noted yesterday after attempt to transition to PO antibiotics that ecchymoses and erythema were rapidly spreading, stat SBC showed a significant increase in leukocytosis again as well but patient remained clinically very well appearing. CT did not show progression of hematoma but only subcutaneous edema. Restarted IV abx and above and consulting ID for assistance with antibiotic choice and duration. Still not enough pain, acidosis, or distress to thinks it is nec fasc and get surgical consultation but will monitor. <Denis Foley - 11/12/17 14:09>
[2017-11-12 10:10] LABS: Calcium 9.2 mg/dL (8.5-10.1); Carbon Dioxide 27.2 meq/L (21.0-32.0); Potassium 3.6 meq/L (3.5-5.1)
[2017-11-12] MEDS: Vancomycin Inj 1,000 MG in Sodium Chlor 0.9% Inj 250 ML IV.SIG SCH (16:30)
[2017-11-13] MEDS: Clindamycin 600 mg/NS Premix 600 MG/50 ML PIGGYBACK IV.SIG SCH ×2 (01:45→10:00)
[2017-11-13 08:36] LABS: Baso # (Auto) 0.2 th/mm3 (0.0-0.2); Baso % (Auto) 0.6 % (0.0-2.0); Eos # (Auto) 0.3 th/mm3 (0.0-0.4); Eos % (Auto) 0.8 % (0.0-4.0); Hematocrit 38.8 % (35.0-46.0); Hemoglobin 12.7 gm/dL (11.6-15.3); Lymph # (Auto) 3.2 th/mm3 (1.0-4.8); Lymph % (Auto) 8.1 % (9.0-44.0); Mean Corpuscular HGB Conc 32.7 % (32.0-36.0); Mean Corpuscular Hemoglobin 28.9 pg (27.0-34.0); Mean Corpuscular Volume 88.6 fL (80.0-100.0); Mean Platelet Volume 8.6 fL (7.0-11.0); Mono # (Auto) 1.2 th/mm3 (0.0-0.9); Neut # (Auto) 34.2 th/mm3 (1.8-7.7); Neut % (Auto) 87.5 % (16.0-70.0); Platelet Count 229 th/mm3 (150-450); Red Blood Count 4.38 mil/mm3 (4.00-5.30); Red Cell Distribution Width 21.3 % (11.6-17.2); White Blood Count 39.1 th/mm3 (4.0-11.0)
[2017-11-13] MEDS: Lisinopril 20 MG Tablet PO SCH (08:47)
[2017-11-13] MEDS: Calcium Carbonate 500 MG Tablet PO SCH (08:47)
[2017-11-13 08:50] LABS: Calcium 8.7 mg/dL (8.5-10.1); Potassium 3.6 meq/L (3.5-5.1)
[2017-11-13 09:16] LABS: Eosinophils 1 % (0-4); Lymphocytes 8 % (9-44); Monocytes 3 % (0-8); Ovalocytes 1+; Platelet Estimate Normal (Normal); Platelet Morphology Normal (Normal); Tallied Nucleated RBC 1 (0-0)
--- NOTE | 2017-11-13 11:52 | P.PNFP ---
Subjective Interval history: No events overnight. Remains afebrile, vitals stable. Patient seen and examined this AM. Patient denies specific complaints. Denies fevers or worsening pain. <VenecialeeleejessicaTroy - 11/13/17 11:52> Results - Labs Result diagrams: 11/13/17 07:43 11/13/17 07:43 <Denis Foley - 11/13/17 18:18> Abnormal lab results 11/13/17 11/13/17 Range/Units 07:43 07:43 WBC 39.1 H (4.0-11.0) th/mm3 RDW 21.3 H (11.6-17.2) % Neut % (Auto) 87.5 H (16.0-70.0) % Lymph % (Auto) 8.1 L (9.0-44.0) % Neut # (Auto) 34.2 H (1.8-7.7) th/mm3 [place] # (Auto) 1.2 H (0.0-0.9) th/mm3 Seg Neuts % (Manual) 81 H (16-70) % Lymphocytes % (Manual) 8 L (9-44) % Abs Neuts (Manual) 34.0 H (1.8-7.7) th/mm3 Nucleated RBCs/100 WBC 1 H (0-0) /100 WBC Ovalocytes 1+ H (None) BUN 6 L (7-18) mg/dL Estimated GFR 74 L (>89) mL/min Short CBC 11/13/17 Range/Units 07:43 WBC 39.1 H (4.0-11.0) th/mm3 Hgb 12.7 (11.6-15.3) gm/dL Hct 38.8 (35.0-46.0) % Plt Count 229 D (150-450) th/mm3 BMP 11/13/17 07:43 Sodium 142 Potassium 3.6 Chloride 106 Carbon Dioxide 26.0 BUN 6 L Creatinine 0.77 Calcium 8.7 <Denis Foley - 11/13/17 18:18> Abnormal lab results 11/13/17 11/13/17 Range/Units 07:43 07:43 WBC 39.1 H (4.0-11.0) th/mm3 RDW 21.3 H (11.6-17.2) % Neut % (Auto) 87.5 H (16.0-70.0) % Lymph % (Auto) 8.1 L (9.0-44.0) % Neut # (Auto) 34.2 H (1.8-7.7) th/mm3 [place] # (Auto) 1.2 H (0.0-0.9) th/mm3 Seg Neuts % (Manual) 81 H (16-70) % Lymphocytes % (Manual) 8 L (9-44) % Abs Neuts (Manual) 34.0 H (1.8-7.7) th/mm3 Nucleated RBCs/100 WBC 1 H (0-0) /100 WBC Ovalocytes 1+ H (None) BUN 6 L (7-18) mg/dL Estimated GFR 74 L (>89) mL/min Short CBC 11/13/17 Range/Units 07:43 WBC 39.1 H (4.0-11.0) th/mm3 Hgb 12.7 (11.6-15.3) gm/dL Hct 38.8 (35.0-46.0) % Plt Count 229 D (150-450) th/mm3 BMP 11/13/17 07:43 Sodium 142 Potassium 3.6 Chloride 106 Carbon Dioxide 26.0 BUN 6 L Creatinine 0.77 Calcium 8.7 <Troy Dinh - 11/13/17 11:52> Physical Exam Vital signs: Vital Signs 11/12/17 20:00 11/12/17 23:09 11/13/17 08:00 Temperature 98.6 F 98.3 F 97.9 F Pulse Rate 85 86 80 Respiratory Rate 18 18 16 Blood Pressure 129/65 131/65 120/58 L Pulse Oximetry 95 99 97 11/13/17 12:00 11/13/17 16:00 Temperature 98.5 F 98.9 F Pulse Rate 71 86 Respiratory Rate 16 18 Blood Pressure 138/76 133/64 Pulse Oximetry 98 98 Intake & Output 11/12/17 11/13/17 11/13/17 18:59 06:59 18:59 Intake Total 960 / 960 640 / 640 Balance 960 / 960 640 / 640 Weight 60.9 kg Intake: IV 400 / 400 Cleocin 600 mg/NS Premix 600 mg 150 / 150 In 50 ml @ 100 mls/hr IV.SIG Q8H [facility] Rx#:[id number] Vancomycin Inj 1,000 MG In NS 250 / 250 Inj 250 ML @ 250 mls/hr IV.SIG Q24H [facility] Rx#:[id number] Oral 960 / 960 240 / 240 Other: # Voids 3 2 Date of Last Bowel Movement 11/11/17 # Bowel Movements 0 <Denis Foley K - 11/13/17 18:18> Vital Signs 11/12/17 12:00 11/12/17 16:00 11/12/17 20:00 Temperature 98.4 F 98.1 F 98.6 F Pulse Rate 84 84 85 Respiratory Rate 18 18 18 Blood Pressure 134/67 136/55 L 129/65 Pulse Oximetry 95 97 95 11/12/17 23:09 11/13/17 08:00 Temperature 98.3 F 97.9 F Pulse Rate 86 80 Respiratory Rate 18 16 Blood Pressure 131/65 120/58 L Pulse Oximetry 99 97 Intake & Output 11/12/17 11/13/17 11/13/17 18:59 06:59 18:59 Intake Total 960 / 960 640 / 640 Balance 960 / 960 640 / 640 Weight 60.9 kg Intake: IV 400 / 400 Cleocin 600 mg/NS Premix 600 mg 150 / 150 In 50 ml @ 100 mls/hr IV.SIG Q8H [facility] Rx#:[id number] Vancomycin Inj 1,000 MG In NS 250 / 250 Inj 250 ML @ 250 mls/hr IV.SIG Q24H [facility] Rx#:[id number] Oral 960 / 960 240 / 240 Other: # Voids 3 2 Date of Last Bowel Movement 11/11/17 # Bowel Movements 0 <Troy Dinh - 11/13/17 11:52> Narrative: Gen NAD, alert CV: RRR no murmur Pulm: CTAB, no increased resp effort Abd: soft ntnd, abd binder in place Skin: Ecchymosis and underlying erythema located around the left hip and midline back, expanding to vaginal area and right hip. Binder and dressing in place status post I&D. Ecchymosis does not appear to have extended significantly from prior examination Ext: no edema <Vidaldavanam,Troy - 11/13/17 11:52> Assessment and Plan - Assessment (1) Hip hematoma, left Code(s): S70.02XA - Contusion of left hip, initial encounter Status: Acute (2) Leukocytosis Code(s): D72.829 - Elevated white blood cell count, unspecified Status: Acute (3) Polycythemia Code(s): D75.1 - Secondary polycythemia Status: Acute (4) HTN (hypertension) Code(s): I10 - Essential (primary) hypertension Status: Acute (5) Nutrition, metabolism, and development symptoms Code(s): R63.8 - Other symptoms and signs concerning food and fluid intake Status: Acute (6) Alcohol use Code(s): Z78.9 - Other specified health status Status: Acute <Denis Foley - 11/13/17 18:18> (1) Hip hematoma, left Code(s): S70.02XA - Contusion of left hip, initial encounter Status: Acute (2) Leukocytosis Code(s): D72.829 - Elevated white blood cell count, unspecified Status: Acute (3) Polycythemia Code(s): D75.1 - Secondary polycythemia Status: Acute (4) HTN (hypertension) Code(s): I10 - Essential (primary) hypertension Status: Acute (5) Nutrition, metabolism, and development symptoms Code(s): R63.8 - Other symptoms and signs concerning food and fluid intake Status: Acute (6) Alcohol use Code(s): Z78.9 - Other specified health status Status: Acute <Troy Dinh - 11/13/17 11:45> - Assessment and Plan 72-year-old female presented to the ED due to pain of left hip secondary to fall. Negative for fracture. Patient found to have leukocytosis and polycythemia on CBC. Patient admitted for further workup. Cellulitis: Patient restarted on Vanc and clindamycin 600 mg IV q8h due to worsening ecchymosis with underlying edema ID consulted due to increase in leukocytosis and worsening above findings, appreciate recommendations Hematoma: Unfortunately, I&D revealed only coagulated blood with no purulence as we suspected additional abscess. Leukocytosis suspect leukomoid reaction. responded very well to IV antibiotics initially. WBC increased to 39.1 this AM, from 30.0, consult placed to infectious disease Hypertension Continue lisinopril 20 mg po daily Clonidine 0.1 mg PRN EtOH overuse: no signs of w/d, d/c CIWA GI ppx: not indicated DVT ppx: SCDs only <VenecialeeleeTroy lopez - 11/13/17 11:52> - Attending Attestation The exam, history, and the medical decision-making described in the above note were completed with the assistance of the resident physician. I reviewed and agree with the findings presented. I attest that I had a uyap-[id number] encounter with the patient on the same day, and personally performed and documented my assessment and findings in the medical record. Still with some pain over affected area but no f/c/n/v. some occasional loose stools that were not present on admission. Leukocytosis Initially I felt it to be leukemoid reaction to cellulitis as area was warm and erythematous and responded so well to antibiotics. Presentation was with WBC of 58 with >90% neutrophils with a left shift and toxic vacuoles, Anion Gap >20, acidosis, tachycardia c/w infection. peripheral smear favored reactive process but could not r/o myelodysplastic process. WBC decreased to the high 20s but then after de-escalation of antibiotics, next lab draw was rising again back into the mid 30s and then changing back to IV abx did not help and area of ecchymoses and erythema spread. Attempt to bedside I&D for suspected abscess revealed only coagulated blood that was sent for culture and expectedly returned negative. Infectious disease consulted to ensure that if leukocytosis still from infection that it is treated appropriately. After consultation, they felt that there was no infectious process and it was more likely a myelodysplastic process. So today we will consult hematology to help further. Hematoma need to continue to monitor, H&H stable unfortunately needs to stay pressure dressed for now HTN cont lisinopril EtOH use no signs of w/d <Denis Foley - 11/13/17 18:18>
--- NOTE | 2017-11-13 12:11 | P.CONID ---
History of Present Illness Service: ID Consult date: 11/13/17 Requesting Physician: Amanda Park Reason for Consult: 72 yr old F with large ecchymosis and underlying cellulitis , currently on V Primary Care Provider: No Primary Care Physician History of Present Illness: 72 yo female who have not seen a doctor for many years presented to ER after she tripped and fell and fevelopped extensive brusing over her L hip and eplvis area She was feeling fine otherwise On prtesentation leukocytosis of 57 K was noted Pt denies having ever been told about any blood count abnormalities No h/o splenectomy No fever She was placed on braod spectruam abx and after that tri developped mild diarrhea, 1-3 loose BMs/day, that are already forming up She is a heavy drinker (1 vodka, 1 berr daily daily) but no withdrawl symptoms in the hospital She had CT A/P that found large hematoma but /w no aucte pathiology that could account for her leukocytosis Pt had a b/s evacuation of hematoma, Gstain showed no WBC, no organissm, no growth for 72 hrs Pt has no fever for the entire duraiton of hospitalisation Her WBC fluctuating in upper 20s, low 30 s Pt is on vancomycin and clindamycin blood clx are negative - final Review of Systems All other systems reviewed negative except as stated in HPI PMFSH - History History Provided By: Patient - Medical History Medical History: Medical History (Last Reviewed 11/13/17 @ 13:17 by Kala Edgar MD) Patient denies medical problems - Surgical History Surgical History: Surgical History (Last Reviewed 11/13/17 @ 13:17 by Kala Edgar MD) No history of previous surgery - Family History Family History: Family History (Last Reviewed 11/13/17 @ 13:17 by Kala Edgar MD) Other Multiple myeloma - Social History I have reviewed the patient's Social History: Yes - Tobacco History Second Hand Smoke Exposure: No Smoking Status: Never smoker - Alcohol History How Often Do You Have a Drink Containing Alcohol: 4 or more times a week - Substance Use History Substance History: No History of Abuse - Substance Use Type Alcohol Status: Active Route Used: By Mouth Frequency: SEVERAL TIMES A DAY Last Used: 11/08/17 Reason for Use: Calm Down - Travel History Recent Travel in the [facility] Within the Last 8 Weeks: No Recent Travel Out of the Country Within the Last 8 Weeks: No - Immunization History Tetanus Immunization: >5 Years Hx Influenza Vaccine This Season: No Medications and Allergies Active Medications: Active Medications Calcium Carbonate (Oscal) 500 mg PO DAILY [facility] Last Admin: 11/13/17 08:47 Dose: 500 mg Clonidine HCl (Catapres) 0.1 mg PO Q6H PRN PRN Reason: SEE LABEL COMMENTS Flumazenil (Romazecon Inj) 0.2 mg IV.PUSH Q1M PRN PRN Reason: OVERSEDATION Haloperidol Lactate (Haldol Inj) 1 mg IV.PUSH Q15M PRN PRN Reason: for severe agitation Vancomycin HCl 1,000 mg/ (Sodium Chloride) 250 mls @ 250 mls/hr IV.SIG Q24H [facility] Last Infusion: 11/12/17 23:11 Dose: Infused Clindamycin/Sodium Chloride (Cleocin 600 Mg/Ns Premix) 600 mg in 50 mls @ 100 mls/hr IV.SIG Q8H [facility] Last Infusion: 11/13/17 02:32 Dose: Infused Ibuprofen (Motrin) 400 mg PO Q6HR PRN PRN Reason: PAIN SCALE 1 TO 2 Ketorolac Tromethamine (Toradol Inj) 15 mg IV.PUSH Q6H PRN PRN Reason: PAIN 3-5; IF UABLE TO TAKE PO Stop: 11/13/17 15:59 Ketorolac Tromethamine (Toradol Inj) 30 mg IV.PUSH Q6H PRN PRN Reason: PAIN 6-10;IF UNABLE TO TAKE PO Stop: 11/13/17 15:59 Lactobacillus Acidophilus (Lactinex Pkt) 1 gm PO DAILY [facility] Last Admin: 11/13/17 08:47 Dose: 1 gm Lisinopril (Prinivil) 20 mg PO DAILY [facility] Last Admin: 11/13/17 08:47 Dose: 20 mg Miscellaneous Information ([facility] [place] [facility] Ordered Lab Info) 1 each OTHER ONCE ONE Stop: 11/13/17 16:46 Naloxone HCl (Narcan Inj) 0.4 mg IV.PUSH UNSCH PRN PRN Reason: SEE LABEL COMMENTS Pharmacy Profile Note (Vancomycin Consult Pharmacy) 1 each OTHER UNSCH PRN PRN Reason: Pharmacy to dose Sodium Chloride (Ns Flush) 2 ml IV.FLUSH BID [facility] Last Admin: 11/13/17 08:47 Dose: 2 ml Sodium Chloride (Ns Flush) 2 ml IV.FLUSH UNSCH PRN PRN Reason: FLUSH AFTER USING IV ACCESS Vitamin D (Vitamin D3) 400 unit PO DAILY [facility] Last Admin: 11/13/17 08:47 Dose: 400 unit Allergies Allergy/AdvReac Type Severity Reaction Status Date / Time No Known Allergies Allergy Uncoded 07/15/15 10:04 Home Medications Medication Instructions Recorded Confirmed Type No Known Home Medications 11/08/17 11/08/17 History Exam Vital signs: Vital Signs 11/12/17 16:00 11/12/17 20:00 11/12/17 23:09 Temperature 98.1 F 98.6 F 98.3 F Pulse Rate 84 85 86 Respiratory Rate 18 18 18 Blood Pressure 136/55 L 129/65 131/65 Pulse Oximetry 97 95 99 11/13/17 08:00 Temperature 97.9 F Pulse Rate 80 Respiratory Rate 16 Blood Pressure 120/58 L Pulse Oximetry 97 Intake & Output 11/12/17 11/13/17 11/13/17 18:59 06:59 18:59 Intake Total 960 / 960 640 / 640 Balance 960 / 960 640 / 640 Weight 60.9 kg Intake: IV 400 / 400 Cleocin 600 mg/NS Premix 600 mg 150 / 150 In 50 ml @ 100 mls/hr IV.SIG Q8H [facility] Rx#:[id number] Vancomycin Inj 1,000 MG In NS 250 / 250 Inj 250 ML @ 250 mls/hr IV.SIG Q24H [facility] Rx#:[id number] Oral 960 / 960 240 / 240 Other: # Voids 3 2 Date of Last Bowel Movement 11/11/17 # Bowel Movements 0 - Constitutional no acute distress, average body habitus - Routine HEENT Exam Head: Present: normocephalic, atraumatic Eye: Present: EOMI, PERRL ENT: Present: mucous membranes moist, oropharynx clear. Absent: dentition normal (edentulous) - Routine Neck Exam Present: supple. Absent: JVD, lymphadenopathy - Routine Chest/Breast/Axilla Exam Axillae: Absent: lymphadenopathy - Routine Respiratory Exam Present: decreased breath sounds, CTA bilaterally. Absent: accessory muscle use - Routine Cardiovascular Exam Present: RRR, S1, S2. Absent: murmur, gallop, rubs - Routine Abdominal Exam Present: soft, normoactive bowel sounds. Absent: firm, organomegaly, mass - Routine Extremities Exam Absent: cyanosis, clubbing, edema - Routine Skin Exam Present: ecchymosis. Absent: jaundice, rash Comments: Pt has extensive ecchymoses of the entire R hip, thigh and suprapubic and R pubic area She has dry blood on the dressig over her R side - Routine Neurological Exam Present: alert, oriented X3, CN II-XII intact, moving all extremities, vision grossly intact, hearing grossly intact, normal speech - Routine Psychiatric Exam Present: normal affect, normal thought process, cooperative Results - Labs CBC & Chem 7: 11/13/17 07:43 11/13/17 07:43 Labs: Laboratory Results - last 24 hr 11/13/17 11/13/17 07:43 07:43 WBC 39.1 H RBC 4.38 Hgb 12.7 Hct 38.8 MCV 88.6 MCH 28.9 MCHC 32.7 RDW 21.3 H Plt Count 229 D MPV 8.6 Prelim Diff (Auto) Slide review pending Neut % (Auto) 87.5 H Lymph % (Auto) 8.1 L [place] % (Auto) 3.0 Eos % (Auto) 0.8 Baso % (Auto) 0.6 Neut # (Auto) 34.2 H Lymph # (Auto) 3.2 [place] # (Auto) 1.2 H Eos # (Auto) 0.3 Baso # (Auto) 0.2 WBC Differential Manual diff final Seg Neuts % (Manual) 81 H Band Neuts % (Manual) 6 Lymphocytes % (Manual) 8 L Monocytes % (Manual) 3 Eosinophils % (Manual) 1 Basophils % (Manual) 1 Abs Neuts (Manual) 34.0 H Nucleated RBCs/100 WBC 1 H Differential Comment . Platelet Estimate Normal Platelet Morphology Normal Ovalocytes 1+ H Sodium 142 Potassium 3.6 Chloride 106 Carbon Dioxide 26.0 Anion Gap 10 BUN 6 L Creatinine 0.77 Estimated GFR 74 L Random Glucose 75 Calcium 8.7 Assessment and Plan - Plan Leukocytosis with leukemoid reaction - duration of leukocytosis is unknown since essentially pt has no CBC fot many years Hematoma, no e/o infection on Gstain and culture Negative BC Pt has no other sighs of infection on clinically or radilogically abx associated diarrhea r/o c.diff dc vancomycin and clindamycin' If negative c.diff pt can be d/c'd on no abx and 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
[2017-11-13] MEDS ORDERED: Pharmacy Ordered Lab Info OTHER ONE (16:45)
[2017-11-14 06:56] LABS: Baso # (Auto) 0.2 th/mm3 (0.0-0.2); Baso % (Auto) 0.7 % (0.0-2.0); Eos # (Auto) 0.3 th/mm3 (0.0-0.4); Hematocrit 37.2 % (35.0-46.0); Hemoglobin 12.1 gm/dL (11.6-15.3); Lymph # (Auto) 2.9 th/mm3 (1.0-4.8); Lymph % (Auto) 8.3 % (9.0-44.0); Mean Corpuscular HGB Conc 32.6 % (32.0-36.0); Mean Corpuscular Hemoglobin 28.9 pg (27.0-34.0); Mean Corpuscular Volume 88.5 fL (80.0-100.0); Mean Platelet Volume 8.3 fL (7.0-11.0); Mono # (Auto) 1.4 th/mm3 (0.0-0.9); Mono % (Auto) 4.2 % (0.0-8.0); Neut # (Auto) 29.7 th/mm3 (1.8-7.7); Neut % (Auto) 85.8 % (16.0-70.0); Platelet Count 253 th/mm3 (150-450); Red Cell Distribution Width 21.8 % (11.6-17.2); White Blood Count 34.6 th/mm3 (4.0-11.0)
[2017-11-14 07:23] LABS: Calcium 8.4 mg/dL (8.5-10.1); Carbon Dioxide 26.7 meq/L (21.0-32.0); Potassium 3.9 meq/L (3.5-5.1)
[2017-11-14] MEDS: Calcium Carbonate 500 MG Tablet PO SCH (08:23)
[2017-11-14] MEDS: Lisinopril 20 MG Tablet PO SCH (08:23)
[2017-11-14 08:53] LABS: Eosinophils 1 % (0-4); Lymphocytes 8 % (9-44); Monocytes 4 % (0-8); Myelocytes 3 % (0-0); Tallied Nucleated RBC 4 (0-0)
[2017-11-14 08:54] LABS: Ovalocytes 1+; Platelet Estimate Normal (Normal); Platelet Morphology Normal (Normal); Polychromasia 2.8 % (0.0-1.9)
[2017-11-14 08:55] LABS: Toxic Granulation 1+
--- NOTE | 2017-11-14 10:56 | P.PNFP ---
Subjective Interval history: No acute events overnight. Patient resting complaint bed. at bedside. Patient has no complaints this morning. Denies chest pain, shortness breath, fevers, nausea vomiting, and abdominal pain. <XavierAmanda Meyer T - 11/14/17 11:02> Results - Labs Result diagrams: 11/14/17 06:14 11/14/17 06:14 <Denis Foley - 11/14/17 15:08> Abnormal lab results 11/14/17 11/14/17 Range/Units 06:14 06:14 WBC 34.6 H (4.0-11.0) th/mm3 RDW 21.8 H (11.6-17.2) % Neut % (Auto) 85.8 H (16.0-70.0) % Lymph % (Auto) 8.3 L (9.0-44.0) % Neut # (Auto) 29.7 H (1.8-7.7) th/mm3 [place] # (Auto) 1.4 H (0.0-0.9) th/mm3 Seg Neuts % (Manual) 77 H (16-70) % Lymphocytes % (Manual) 8 L (9-44) % Myelocytes % (Man) 3 H (0-0) % Abs Neuts (Manual) 29.4 H (1.8-7.7) th/mm3 Nucleated RBCs/100 WBC 4 H (0-0) /100 WBC Toxic Granulation 1+ H (None) Polychromasia 2.8 H (0.0-1.9) % Ovalocytes 1+ H (None) Estimated GFR 72 L (>89) mL/min Calcium 8.4 L (8.5-10.1) mg/dL Short CBC 11/14/17 Range/Units 06:14 WBC 34.6 H (4.0-11.0) th/mm3 Hgb 12.1 (11.6-15.3) gm/dL Hct 37.2 (35.0-46.0) % Plt Count 253 (150-450) th/mm3 [facility] 11/14/17 06:14 Sodium 143 Potassium 3.9 Chloride 107 Carbon Dioxide 26.7 BUN 9 Creatinine 0.79 Calcium 8.4 L <Denis Foley - 11/14/17 15:08> Abnormal lab results 11/14/17 11/14/17 Range/Units 06:14 06:14 WBC 34.6 H (4.0-11.0) th/mm3 RDW 21.8 H (11.6-17.2) % Neut % (Auto) 85.8 H (16.0-70.0) % Lymph % (Auto) 8.3 L (9.0-44.0) % Neut # (Auto) 29.7 H (1.8-7.7) th/mm3 [place] # (Auto) 1.4 H (0.0-0.9) th/mm3 Seg Neuts % (Manual) 77 H (16-70) % Lymphocytes % (Manual) 8 L (9-44) % Myelocytes % (Man) 3 H (0-0) % Abs Neuts (Manual) 29.4 H (1.8-7.7) th/mm3 Nucleated RBCs/100 WBC 4 H (0-0) /100 WBC Toxic Granulation 1+ H (None) Polychromasia 2.8 H (0.0-1.9) % Ovalocytes 1+ H (None) Estimated GFR 72 L (>89) mL/min Calcium 8.4 L (8.5-10.1) mg/dL Short CBC 11/14/17 Range/Units 06:14 WBC 34.6 H (4.0-11.0) th/mm3 Hgb 12.1 (11.6-15.3) gm/dL Hct 37.2 (35.0-46.0) % Plt Count 253 (150-450) th/mm3 BMP 11/14/17 06:14 Sodium 143 Potassium 3.9 Chloride 107 Carbon Dioxide 26.7 BUN 9 Creatinine 0.79 Calcium 8.4 L <Amanda Park T - 11/14/17 10:55> Physical Exam Vital signs: Vital Signs 11/13/17 16:00 11/13/17 20:00 11/14/17 00:00 Temperature 98.9 F 98.6 F 98.5 F Pulse Rate 86 92 H 81 Respiratory Rate 18 18 18 Blood Pressure 133/64 134/63 119/67 Pulse Oximetry 98 98 97 11/14/17 08:00 11/14/17 12:00 Temperature 98.5 F 98.5 F Pulse Rate 78 82 Respiratory Rate 16 16 Blood Pressure 135/66 128/62 Pulse Oximetry 97 98 Intake & Output 11/13/17 11/14/17 11/14/17 18:59 06:59 18:59 Intake Total 600 / 600 340 / 340 Balance 600 / 600 340 / 340 Weight 60.9 kg Intake: Oral 600 / 600 340 / 340 Other: # Voids 3 4 Date of Last Bowel Movement 11/11/17 11/13/17 # Bowel Movements 1 <Denis Foley K - 11/14/17 15:08> Vital Signs 11/13/17 12:00 11/13/17 16:00 11/13/17 20:00 Temperature 98.5 F 98.9 F 98.6 F Pulse Rate 71 86 92 H Respiratory Rate 16 18 18 Blood Pressure 138/76 133/64 134/63 Pulse Oximetry 98 98 98 11/14/17 00:00 11/14/17 08:00 Temperature 98.5 F 98.5 F Pulse Rate 81 78 Respiratory Rate 18 16 Blood Pressure 119/67 135/66 Pulse Oximetry 97 97 Intake & Output 11/13/17 11/14/17 11/14/17 18:59 06:59 18:59 Intake Total 600 / 600 340 / 340 Balance 600 / 600 340 / 340 Weight 60.9 kg Intake: Oral 600 / 600 340 / 340 Other: # Voids 3 4 Date of Last Bowel Movement 11/11/17 11/13/17 # Bowel Movements 1 <Amanda Park T - 11/14/17 10:55> Narrative: Gen NAD, alert CV: RRR no murmur Pulm: CTAB, no increased resp effort Abd: soft ntnd, abd binder in place Skin: Ecchymosis and underlying erythema located around the left hip and midline back, expanding to vaginal area and right hip. Binder and dressing in place status post I&D. Ecchymosis does not appear to have extended significantly from prior examination Ext: no edema <Amanda Park T - 11/14/17 11:02> Assessment and Plan - Assessment (1) Hip hematoma, left Code(s): S70.02XA - Contusion of left hip, initial encounter Status: Acute (2) Leukocytosis Code(s): D72.829 - Elevated white blood cell count, unspecified Status: Acute (3) Polycythemia Code(s): D75.1 - Secondary polycythemia Status: Acute (4) HTN (hypertension) Code(s): I10 - Essential (primary) hypertension Status: Acute (5) Nutrition, metabolism, and development symptoms Code(s): R63.8 - Other symptoms and signs concerning food and fluid intake Status: Acute (6) Alcohol use Code(s): Z78.9 - Other specified health status Status: Acute <Denis Foley K - 11/14/17 15:08> (1) Hip hematoma, left Code(s): S70.02XA - Contusion of left hip, initial encounter Status: Acute (2) Leukocytosis Code(s): D72.829 - Elevated white blood cell count, unspecified Status: Acute (3) Polycythemia Code(s): D75.1 - Secondary polycythemia Status: Acute (4) HTN (hypertension) Code(s): I10 - Essential (primary) hypertension Status: Acute (5) Nutrition, metabolism, and development symptoms Code(s): R63.8 - Other symptoms and signs concerning food and fluid intake Status: Acute (6) Alcohol use Code(s): Z78.9 - Other specified health status Status: Acute <Amanda Park T - 11/14/17 10:55> - Assessment and Plan 72-year-old female presented to the ED due to pain of left hip secondary to fall. Negative for fracture. Patient found to have leukocytosis and polycythemia on CBC. Patient admitted for further workup. Leukocytosis/Ecchymosis/Cellulitis Suspected leukemoid reaction. responded very well to IV antibiotics initially. WBC elevated to 39.1 today from 30 ID consulted, appreciated recommendations Discontinued Vancomycin and Clindamycin Peripheral smear on 11/09/17 demonstrates increased numbers of leukocytes, predominantly composed of mature neutrophils and occasional myelocytes and metamyelocytes. Platelets are adequate in number. Rare large platelet forms are present. Hematology/Oncology consulted, appreciate recommendations Hypertension Continue lisinopril 20 mg po daily Clonidine 0.1 mg PRN GI ppx: not indicated DVT ppx: SCDs only <Amanda Park T - 11/14/17 11:02> - Attending Attestation The exam, history, and the medical decision-making described in the above note were completed with the assistance of the resident physician. I reviewed and agree with the findings presented. I attest that I had a [id number] encounter with the patient on the same day, and personally performed and documented my assessment and findings in the medical record. Today she is feeling well, not much leg pain, no fevers. They would like hematology opinion today. undressed hematoma and blood stayed coagulated with no blood leukocytosis initially suspected leukemoid reaction, but no adequate response to antibiotics for cellulitis ID consulted and no infection appreciated concern now is more myelodysplastic process As I do feel she initially clinically had a cellulitis and tachycardia, acidosis , erythema and warmth improved with antibiotics, will send out on PO course of abx to finish full course Hematoma coagulated well now. keep dressed tightly for 48 hrs, then can change daily with gauze and tape until follow up. HTN can continue lisinopril and f/u with us as an outpatient <Denis Foley - 11/14/17 15:08>
--- NOTE | 2017-11-14 15:41 | MB ---
cc: Rehana Martínez MD DATE: 11/14/2017 CHIEF COMPLAINT: 1. Leukocytosis. 2. Evaluation for myeloproliferative neoplasm. HISTORY OF PRESENT ILLNESS: Ms. Khalil is a 72-year-old lady with a past medical history that is significant for hypertension, who presented to the emergency room on 11/08/2017 after a fall at home and she developed extensive bruising over her left hip and pelvis. CT scan of the abdomen and pelvis showed moderate large subcutaneous hematoma over the left lateral abdomen adjacent to the anterior iliac bone, does measure up to at least 7.3 cm, and there is surrounding inflammatory change, hepatic steatosis, and mild splenomegaly also noted. Peripheral blood smear obtained and found leukoerythroblastosis with rare nucleated red blood cells, large platelet forms. This peripheral blood finding can be seen in infection stress infiltrative process of the bone marrow, primary bone marrow disorders including myeloproliferative neoplasia. Infectious disease team was consulted and did not see any radiographic, clinical or laboratory indications of infection. White blood cell count noted to be elevated. On admission, white blood cell count 57.8, today it is 34.6. On differential, segmental neutrophils, bands, metamyelocytes, myelocytes, promyelocytes are present. Hemoglobin was 15.9 on admission, but was slightly below the lower limit of normal at 11.2 on 11/12/2017 and today is within normal limits at 12.1. Platelet count was low at 122,000 on 11/10/2017 and low at 147,000 on 11/11/2017, it has since been within normal limits. Chemistry studies significant for an elevated total bilirubin at 2. AST, ALT and alkaline phosphatase are within normal limits. Creatinine within normal limits as well. Hematoma is improving. The patient's physical status is improving. Infectious workup including wound culture for abscess negative, blood cultures with no growth at 5 days. Urine with no evidence of any infection. PAST MEDICAL HISTORY: Hypertension. PAST SURGICAL HISTORY: 1. Teeth removed. 2. Skin cancer removed, basal cell carcinomas removed from her nose. HOME MEDICATIONS: Include lisinopril. GYNECOLOGIC HISTORY: The patient is postmenopausal. She had 1 miscarriage in 1981. SOCIAL HISTORY: She denies any tobacco abuse. She reports that she drinks approximately 3-4 beers per day. REVIEW OF SYSTEMS: As above in the HPI, otherwise negative. PHYSICAL EXAMINATION: VITAL SIGNS: Temperature 98.5, pulse 82, respiratory rate 16, blood pressure 128/62, pulse oximetry is 98% on room air. GENERAL: Well-developed, well-nourished lady, in no distress. HEENT: Head is normocephalic, atraumatic. Eyes: PERRLA. EOMI. NECK: Supple. No palpable lymphadenopathy. AXILLA: No palpable lymphadenopathy. CARDIOVASCULAR: Regular rate and rhythm. No murmurs. RESPIRATORY: Clear to auscultation bilaterally. ABDOMEN: Soft, nontender, nondistended. Bowel sounds present. MUSCULOSKELETAL: Large hematoma that is present over the left hip. The patient and attending physician reports that this is improving. EXTREMITIES: No edema. NEUROLOGIC: Grossly nonfocal. PSYCHIATRIC: Appropriate mood and affect. ASSESSMENT AND PLAN: Patient with leukocytosis with early cells including promyelocytes, metamyelocytes and myelocytes that are present on differential. This is suspicious for an underlying myeloproliferative neoplasm. We will order evaluation to include flow cytometry, JAK2 BCR-ABL, a bone marrow biopsy. We will also check ESR and CRP. We will also check vitamin B12, folate, iron profile, LDH and haptoglobin. We will also recheck hepatic function panel. Inpatient hematology service will continue to follow. MD DINORA Marks/umer , 02:51 PM , 03:03 PM
[2017-11-14 16:56] LABS: Albumin 3.5 g/dL (3.4-5.0); Aspartate Aminotransferase 32 U/L (15-37); Lactate Dehydrogenase 399 U/L (84-246)
[2017-11-14 17:23] LABS: Alanine Aminotransferase 32 U/L (10-53); Alkaline Phosphatase 101 U/L (45-117); C-Reactive Protein 0.42 mg/dL (0.00-0.30); Ferritin 374 ng/mL (8-252); Folate 6.2 ng/mL (3.1-17.5); Iron 48 mcg/dL (50-170); Total Iron Binding Capacity 319 mcg/dL (250-450); Total Protein 6.6 g/dL (6.4-8.2); Vitamin B12 532 pg/mL (193-986)
[2017-11-14 17:38] LABS: Erythrocyte Sedimentation Rate 7 mm/hr (0-30)
[2017-11-14 22:32] VITALS: RESP 18
[2017-11-15 07:07] LABS: Baso # (Auto) 0.3 th/mm3 (0.0-0.2); Baso % (Auto) 0.9 % (0.0-2.0); Eos # (Auto) 0.4 th/mm3 (0.0-0.4); Eos % (Auto) 1.5 % (0.0-4.0); Hematocrit 40.5 % (35.0-46.0); Hemoglobin 12.9 gm/dL (11.6-15.3); Lymph % (Auto) 9.8 % (9.0-44.0); Mean Corpuscular HGB Conc 31.7 % (32.0-36.0); Mean Corpuscular Hemoglobin 28.9 pg (27.0-34.0); Mean Platelet Volume 8.4 fL (7.0-11.0); Mono # (Auto) 1.6 th/mm3 (0.0-0.9); Mono % (Auto) 5.1 % (0.0-8.0); Neut # (Auto) 25.4 th/mm3 (1.8-7.7); Neut % (Auto) 82.7 % (16.0-70.0); Platelet Count 279 th/mm3 (150-450); Red Blood Count 4.45 mil/mm3 (4.00-5.30); Red Cell Distribution Width 21.2 % (11.6-17.2); White Blood Count 30.7 th/mm3 (4.0-11.0)
[2017-11-15 07:29] LABS: Calcium 9.4 mg/dL (8.5-10.1); Carbon Dioxide 26.7 meq/L (21.0-32.0); Potassium 3.7 meq/L (3.5-5.1)
[2017-11-15] MEDS ORDERED: fentaNYL Citrate Inj 250 MCG/5 ML Ampul ONE (08:13)
[2017-11-15 08:17] LABS: Lymphocytes 7 % (9-44); Metamyelocytes 1 % (0-1); Monocytes 2 % (0-8); Myelocytes 1 % (0-0); Platelet Estimate Normal (Normal); Platelet Morphology Normal (Normal); Tallied Nucleated RBC 2 (0-0)
[2017-11-15 08:18] LABS: Polychromasia 2.5 % (0.0-1.9)
[2017-11-15] MEDS ORDERED: Lidocaine 1%/Epinephrine 1:100,000 Inj 20 ML Vial ONE (08:20)
[2017-11-15] MEDS: Calcium Carbonate 500 MG Tablet PO SCH (09:29)
[2017-11-15 10:50] LABS: Iron Stain Bone Marrow Done
[2017-11-15] MEDS: Lisinopril 20 MG Tablet PO SCH (11:34)
--- NOTE | 2017-11-15 11:42 | P.RAD ---
Post CT Procedure Prog Note - Procedure Information Procedure Date: 11/15/17 Supervising Radiologist: Parmjit Claire MD Anesthesia: Local - Plan of Activity Patient to Unit: Nursing Unit Patient condition: Good See PACS Report for procedural detail/treatment.
[2017-11-15 12:17] VITALS: BP 139/67; PULSE 74; TEMP 98.6; O2SAT 98
--- NOTE | 2017-11-15 15:13 | P.PNFP ---
Subjective Interval history: No acute events overnight. No complaints this morning. <TamiaCorbinAntelmo J - 11/15/17 15:13> Results - Labs Result diagrams: 11/15/17 05:09 11/15/17 05:09 <Denis Foley - 11/15/17 15:35> Abnormal lab results 11/14/17 11/15/17 11/15/17 Range/Units 15:30 05:09 05:09 WBC 30.7 H (4.0-11.0) th/mm3 MCHC 31.7 L (32.0-36.0) % RDW 21.2 H (11.6-17.2) % Neut % (Auto) 82.7 H (16.0-70.0) % Neut # (Auto) 25.4 H (1.8-7.7) th/mm3 Rock # (Auto) 1.6 H (0.0-0.9) th/mm3 Baso # (Auto) 0.3 H (0.0-0.2) th/mm3 Seg Neuts % (Manual) 76 H (16-70) % Band Neuts % (Manual) 13 H (0-6) % Lymphocytes % (Manual) 7 L (9-44) % Myelocytes % (Man) 1 H (0-0) % Abs Neuts (Manual) 27.9 H (1.8-7.7) th/mm3 Nucleated RBCs/100 WBC 2 H (0-0) /100 WBC Polychromasia 2.5 H (0.0-1.9) % Haptoglobin Less than 10 L (30-200) mg/dL Estimated GFR 71 L (>89) mL/min Random Glucose 59 L (74-106) mg/dL Iron 48 L (50-170) mcg/dL % Saturation 15.0 L (20-50) % Ferritin 374 H (8-252) ng/mL Total Bilirubin 2.0 H (0.2-1.0) mg/dL Direct Bilirubin 0.4 H (0.0-0.2) mg/dL Indirect Bilirubin 1.6 H (0.0-0.8) mg/dL Lactate Dehydrogenase 399 H (84-246) U/L C-Reactive Protein 0.42 H (0.00-0.30) mg/dL Short CBC 11/15/17 Range/Units 05:09 WBC 30.7 H (4.0-11.0) th/mm3 Hgb 12.9 (11.6-15.3) gm/dL Hct 40.5 (35.0-46.0) % Plt Count 279 (150-450) th/mm3 BMP 11/15/17 05:09 Sodium 141 Potassium 3.7 Chloride 105 Carbon Dioxide 26.7 BUN 16 Creatinine 0.80 Calcium 9.4 D Liver Function 11/14/17 Range/Units 15:30 Total Bilirubin 2.0 H (0.2-1.0) mg/dL Direct Bilirubin 0.4 H (0.0-0.2) mg/dL AST 32 (15-37) U/L ALT 32 (10-53) U/L Alkaline Phosphatase 101 (45-117) U/L Albumin 3.5 (3.4-5.0) g/dL <Denis Foley - 11/15/17 15:35> Abnormal lab results 11/14/17 11/15/17 11/15/17 Range/Units 15:30 05:09 05:09 WBC 30.7 H (4.0-11.0) th/mm3 MCHC 31.7 L (32.0-36.0) % RDW 21.2 H (11.6-17.2) % Neut % (Auto) 82.7 H (16.0-70.0) % Neut # (Auto) 25.4 H (1.8-7.7) th/mm3 Rock # (Auto) 1.6 H (0.0-0.9) th/mm3 Baso # (Auto) 0.3 H (0.0-0.2) th/mm3 Seg Neuts % (Manual) 76 H (16-70) % Band Neuts % (Manual) 13 H (0-6) % Lymphocytes % (Manual) 7 L (9-44) % Myelocytes % (Man) 1 H (0-0) % Abs Neuts (Manual) 27.9 H (1.8-7.7) th/mm3 Nucleated RBCs/100 WBC 2 H (0-0) /100 WBC Polychromasia 2.5 H (0.0-1.9) % Haptoglobin Less than 10 L (30-200) mg/dL Estimated GFR 71 L (>89) mL/min Random Glucose 59 L (74-106) mg/dL Iron 48 L (50-170) mcg/dL % Saturation 15.0 L (20-50) % Ferritin 374 H (8-252) ng/mL Total Bilirubin 2.0 H (0.2-1.0) mg/dL Direct Bilirubin 0.4 H (0.0-0.2) mg/dL Indirect Bilirubin 1.6 H (0.0-0.8) mg/dL Lactate Dehydrogenase 399 H (84-246) U/L C-Reactive Protein 0.42 H (0.00-0.30) mg/dL Short CBC 11/15/17 Range/Units 05:09 WBC 30.7 H (4.0-11.0) th/mm3 Hgb 12.9 (11.6-15.3) gm/dL Hct 40.5 (35.0-46.0) % Plt Count 279 (150-450) th/mm3 BMP 11/15/17 05:09 Sodium 141 Potassium 3.7 Chloride 105 Carbon Dioxide 26.7 BUN 16 Creatinine 0.80 Calcium 9.4 D Liver Function 11/14/17 Range/Units 15:30 Total Bilirubin 2.0 H (0.2-1.0) mg/dL Direct Bilirubin 0.4 H (0.0-0.2) mg/dL AST 32 (15-37) U/L ALT 32 (10-53) U/L Alkaline Phosphatase 101 (45-117) U/L Albumin 3.5 (3.4-5.0) g/dL <Antelmo Cantrell - 11/15/17 15:13> Physical Exam Vital signs: Vital Signs 11/14/17 16:00 11/14/17 20:00 11/15/17 00:00 Temperature 99.2 F 98.6 F 98.2 F Pulse Rate 90 79 80 Respiratory Rate 16 18 18 Blood Pressure 137/66 117/61 120/56 L Pulse Oximetry 97 97 95 11/15/17 04:00 11/15/17 07:30 11/15/17 12:00 Temperature 98 F 98.0 F 98.6 F Pulse Rate 76 73 74 Respiratory Rate 18 18 18 Blood Pressure 113/72 117/58 L 139/67 Pulse Oximetry 95 99 98 Intake & Output 11/14/17 11/15/17 11/15/17 18:59 06:59 18:59 Intake Total 450 / 450 Balance 450 / 450 Weight 60.9 kg Intake: Oral 450 / 450 Other: # Voids 4 5 Date of Last Bowel Movement 11/13/17 11/13/17 11/13/17 <GustavogalinaDenis K - 11/15/17 15:35> Vital Signs 11/14/17 16:00 11/14/17 20:00 11/15/17 00:00 Temperature 99.2 F 98.6 F 98.2 F Pulse Rate 90 79 80 Respiratory Rate 18 Blood Pressure 137/66 117/61 120/56 L Pulse Oximetry 97 97 95 11/15/17 04:00 11/15/17 07:30 11/15/17 12:00 Temperature 98 F 98.0 F 98.6 F Pulse Rate 76 73 74 Respiratory Rate 18 Blood Pressure 113/72 117/58 L 139/67 Pulse Oximetry 95 99 98 Intake & Output 11/14/17 11/15/17 11/15/17 18:59 06:59 18:59 Intake Total 450 / 450 Balance 450 / 450 Weight 60.9 kg Intake: Oral 450 / 450 Other: # Voids 4 5 Date of Last Bowel Movement 11/13/17 11/13/17 11/13/17 <Antelmo Cantrell - 11/15/17 15:13> Narrative: General: Well-developed, alert, and in no acute distress. Appears stated age HEENT: Atraumatic, moist mucous membranes Cardiac: Regular rate and rhythm without murmurs or gallops Pulmonary: Non-labored breathing. Lungs clear to auscultation bilaterally with good air movement Abdomen: Normal bowel sounds, soft and non-tender without rebound or guarding Extremities: No edema, 2+ pedal pulses, capillary refill less than 2 seconds Skin: Significant ecchymosis still present, however with some interval improvement from yesterday. Significant induration to the left lateral hip still present. Dressing was heavily stained with blood, however there is no active bleeding upon changing the dressing. <Antelmo Cantrell - 11/15/17 15:13> Assessment and Plan - Assessment (1) Hip hematoma, left Code(s): S70.02XA - Contusion of left hip, initial encounter Status: Acute (2) Leukocytosis Code(s): D72.829 - Elevated white blood cell count, unspecified Status: Acute (3) Polycythemia Code(s): D75.1 - Secondary polycythemia Status: Acute (4) HTN (hypertension) Code(s): I10 - Essential (primary) hypertension Status: Acute (5) Nutrition, metabolism, and development symptoms Code(s): R63.8 - Other symptoms and signs concerning food and fluid intake Status: Acute (6) Alcohol use Code(s): Z78.9 - Other specified health status Status: Acute <Denis Foley - 11/15/17 15:35> (1) Hip hematoma, left Code(s): S70.02XA - Contusion of left hip, initial encounter Status: Acute (2) Leukocytosis Code(s): D72.829 - Elevated white blood cell count, unspecified Status: Acute (3) Polycythemia Code(s): D75.1 - Secondary polycythemia Status: Acute (4) HTN (hypertension) Code(s): I10 - Essential (primary) hypertension Status: Acute (5) Nutrition, metabolism, and development symptoms Code(s): R63.8 - Other symptoms and signs concerning food and fluid intake Status: Acute (6) Alcohol use Code(s): Z78.9 - Other specified health status Status: Acute <Corbin Cantrellsierra Santiago - 11/15/17 15:04> - Assessment and Plan 72-year-old female presented to the ED due to pain of left hip secondary to fall. Negative for fracture. Patient found to have leukocytosis and polycythemia on CBC. Patient admitted for further workup. Leukocytosis -Hematology consulted, appreciate recommendations -WBC of 30.7 today. This has been labile over the past week. -Antibiotics were discontinued per ID recommendations -Peripheral smear on 11/09/17 demonstrates increased numbers of leukocytes, predominantly composed of mature neutrophils and occasional myelocytes and metamyelocytes. Platelets are adequate in number. Rare large platelet forms are present. -Bone marrow biopsy performed today -Hematology recommends outpatient follow-up at this time Hematoma: -Hematoma is still present and significant in size. -Dressing in place with no active bleeding at this time - was educated and will continue dressing changes until told to stop and outpatient follow-up Hypertension Continue lisinopril 20 mg po daily Clonidine 0.1 mg PRN Fluids: Adequate p.o. intake Electrolytes: monitor and replete as needed Nutrition: Regular diet GI prophylaxis: not indicated VTE prophylaxis: SCDs. Pharmacologic prophylaxis contraindicated due to bleeding risk. Disposition: Anticipate discharge home today with outpatient follow-up from hematology <Antelmo Cantrell - 11/15/17 15:13> - Attending Attestation The exam, history, and the medical decision-making described in the above note were completed with the assistance of the resident physician. I reviewed and agree with the findings presented. I attest that I had a [id number] encounter with the patient on the same day, and personally performed and documented my assessment and findings in the medical record. No complaints this AM. Tolerated BM biopsy this AM without complication. Still stable with no signs of deterioration off antibiotics. She is happy with plan to go home and follow up results as an outpatient. Redressed hematoma at bedside and no blood evacuation during dressing again. Will follow up with hematology outpatient and will make clinic appointment with me in 6 days. <Denis Foley - 11/15/17 15:35>
--- NOTE | 2017-11-15 15:16 | P.DS ---
Date of admission: 11/08/17 13:55 Primary care physician: No Primary Care Physician Brief History from admission: 72-year-old female presents to the ED with left hip pain. Here with . States that she was at her neighbor's house on Tuesday and fell while she was walking down the stairs from the porch. She fell on her left hip. She mainly experienced bruising and swelling of her left hip. She states that she lost her balance. She did not hit her head. She denies loss of consciousness, tongue biting cough, loss of bowel or bladder symptoms, and palpitations. Patient states that they were in [facility] at the time and did not want to seek medical care there. She states that her and her live in a camper and were traveling to [facility]. She has no history of fractures. She denies chest pain, SOB , weight loss, fevers, chills, and night sweats. PMHx: HTN? PSHx: skin cancer removal on nose teeth removed Meds: none Allergies:NKDA FHx: Mom- 86 multiple myeloma Dad-91- heart conditions Siblings: sister cancer-breast cancer Social: Live with , retired Smoking- denies Alcohol-1 beer/1 vodka / night Denies illicit drug use DS: Diagnosis - Discharge Diagnosis (1) Hip hematoma, left Status: Acute (2) Leukocytosis Status: Acute (3) Polycythemia Status: Acute (4) HTN (hypertension) Status: Acute (5) Nutrition, metabolism, and development symptoms Status: Acute (6) Alcohol use Status: Acute DS: Medications - Discharge Medications Prescriptions: Lactobacillus acidoph-Chacha [Floranex] 1 gm PO DAILY #25 ea lisinopril 20 mg PO DAILY #90 tab DS: Summary Hospital Course: On the evening of admission it was thought that she had significant cellulitis in addition to her hematoma. Her WBC was 57.8 at that time and she had continued to be tachycardic with a high of 119. Blood cultures were drawn and she was started on IV Vancomycin and Clindamycin. HD-2 her WBC decreased to 40.8 and she appeared clinically stable. Blood smear had shown some metamyelocytes and myelocytes. HD-3 her WBC decreased to 28 and the area over the left hip had increased fluctuance. I&D was performed, yielding was appeared to entirely be coagulated blood. IV Vanco was discontinued and IV Clindamycin was switched to PO. At this time she also was consistantly hypertensive, so she was started on Lisinopril 10mg. HD-4 WBC stable at 27.6 HD-5 WBC increased to 35.5. Clindamycin was switched to IV and IV vancomycin was restarted. She had worsening ecchymosis with underlying edema. Blood and wound cultures continued to be negative. Lisinopril was increased to 20mg due to continued HTN. HD-6 WBC decreased to 30.0 - ID recommended discontinuing antibiotics due to no acute signs of infection HD-7 WBC increased to 39.1 -seen by hematology who recommended starting workup as an inpatient including flow cytometry, JAK2 BCR-ABL, and bone marrow biopsy. HD-8 WBC decreased to 34.6 - bone marrow biopsy was performed and tolerated well. Patient was discharged home in stable condition with follow up with Dr. Foley for Primary care and Dr. Martínez for hematology. - Time Spent with Patient Total time spent providing and/or coordinating discharge services: Less than 30 minutes - Quality: VTE Deep Vein Thrombosis/Pulmonary Embolism Present on Admission: No Exam Vital signs: Vital Signs 11/14/17 16:00 11/14/17 20:00 11/15/17 00:00 Temperature 99.2 F 98.6 F 98.2 F Pulse Rate 90 79 80 Respiratory Rate 16 18 18 Blood Pressure 137/66 117/61 120/56 L Pulse Oximetry 97 97 95 11/15/17 04:00 11/15/17 07:30 11/15/17 12:00 Temperature 98 F 98.0 F 98.6 F Pulse Rate 76 73 74 Respiratory Rate 18 18 18 Blood Pressure 113/72 117/58 L 139/67 Pulse Oximetry 95 99 98 Intake & Output 11/14/17 11/15/17 11/15/17 18:59 06:59 18:59 Intake Total 450 / 450 Balance 450 / 450 Weight 60.9 kg Intake: Oral 450 / 450 Other: # Voids 4 5 Date of Last Bowel Movement 11/13/17 11/13/17 11/13/17 Results Procedures completed during hospitalization: I&D and bone marrow biopsy Labs on day of discharge: Labs from last 24 hours 11/15/17 11/15/17 11/15/17 10:23 05:09 05:09 WBC 30.7 H RBC 4.45 Hgb 12.9 Hct 40.5 MCV 91.0 MCH 28.9 MCHC 31.7 L RDW 21.2 H Plt Count 279 MPV 8.4 Prelim Diff (Auto) Slide review pending Neut % (Auto) 82.7 H Lymph % (Auto) 9.8 Wilson % (Auto) 5.1 Eos % (Auto) 1.5 Baso % (Auto) 0.9 Neut # (Auto) 25.4 H Lymph # (Auto) 3.0 Wilson # (Auto) 1.6 H Eos # (Auto) 0.4 Baso # (Auto) 0.3 H WBC Differential Manual diff final Seg Neuts % (Manual) 76 H Band Neuts % (Manual) 13 H Lymphocytes % (Manual) 7 L Monocytes % (Manual) 2 Metamyelocytes % (Man) 1 Myelocytes % (Man) 1 H Abs Neuts (Manual) 27.9 H Nucleated RBCs/100 WBC 2 H Differential Comment . Platelet Estimate Normal Platelet Morphology Normal Polychromasia 2.5 H Smear Path Review ESR Haptoglobin Sodium 141 Potassium 3.7 Chloride 105 Carbon Dioxide 26.7 Anion Gap 9 BUN 16 Creatinine 0.80 Estimated GFR 71 L Random Glucose 59 L Calcium 9.4 D Iron TIBC % Saturation Ferritin Total Bilirubin Direct Bilirubin Indirect Bilirubin AST ALT Alkaline Phosphatase Lactate Dehydrogenase C-Reactive Protein Total Protein Albumin Vitamin B12 Folate Immunophenotypic Anal Marrow Immunophenotype Pending BM Chromosome Interp Pending JAK2 Mutation (PCR) BCR/abl (FISH) Interp 11/14/17 11/14/17 11/14/17 15:30 15:30 15:30 WBC RBC Hgb Hct MCV MCH MCHC RDW Plt Count MPV Prelim Diff (Auto) Neut % (Auto) Lymph % (Auto) Wilson % (Auto) Eos % (Auto) Baso % (Auto) Neut # (Auto) Lymph # (Auto) Wilson # (Auto) Eos # (Auto) Baso # (Auto) WBC Differential Seg Neuts % (Manual) Band Neuts % (Manual) Lymphocytes % (Manual) Monocytes % (Manual) Metamyelocytes % (Man) Myelocytes % (Man) Abs Neuts (Manual) Nucleated RBCs/100 WBC Differential Comment Platelet Estimate Platelet Morphology Polychromasia Smear Path Review ESR 7 Haptoglobin Less than 10 L Sodium Potassium Chloride Carbon Dioxide Anion Gap BUN Creatinine Estimated GFR Random Glucose Calcium Iron 48 L TIBC 319 % Saturation 15.0 L Ferritin 374 H Total Bilirubin 2.0 H Direct Bilirubin 0.4 H Indirect Bilirubin 1.6 H AST 32 ALT 32 Alkaline Phosphatase 101 Lactate Dehydrogenase 399 H C-Reactive Protein 0.42 H Total Protein 6.6 D Albumin 3.5 Vitamin B12 532 Folate 6.2 Immunophenotypic Anal Marrow Immunophenotype BM Chromosome Interp JAK2 Mutation (PCR) Pending BCR/abl (FISH) Interp Pending - Impressions ITS Impressions Hip X-Ray 11/08/17 11:05 CONCLUSION: Negative trauma study. Abdomen/Pelvis CT 11/11/17 15:06 CONCLUSION: 1. Large subcutaneous hematoma overlying the left iliac bone laterally which measures 8.6 x 3.8 cm. and has decreased slightly in size compared to 2017. Subcutaneous edema is noted throughout the pelvis. 2. Enlarged fatty liver. 3. Mild splenomegaly. 4. Gallbladder sludge. Discharge Plan - Discharge Disposition Patient Disposition: Discharge Home - Discharge Condition Condition: Stable - Discharge Order Discharge Orders: Discharge Order (Routine); Ordered 11/15/17 Ordered By: Antelmo Cantrell - Discharge Details Discharge Comment: Patient has high white count, admitted for further evaluation and treatment. - Physicians Team Primary Care Provider: Primary Care Physici,No Attending Provider: Denis Foley Other Providers: Kala Edgar MD ; Rehana Martínez
--- NOTE | 2017-11-15 15:35 | CT ---
EXAM DATE: 11/15/2017 8:41 AM EDT AGE/SEX: 72 years / Female INDICATIONS: Bone marrow biopsy. Leukemia. CLINICAL DATA: This is the patient's initial encounter. Patient reports that signs and symptoms have been present for 1 day and indicates a pain score of 0/10. MEDICAL/SURGICAL HISTORY: Hypertension. Left hip hematoma. None. COMPARISON: No prior exams available for comparison. BIOPSY SITE: Right pelvic DEVICE(S): 12 gauge Bone marrow biopsy needle One core specimen(s) sent to the laboratory for pathologic evaluation. . . PROCEDURE: CT guided Right pelvic biopsy Prior to the procedure informed consent was obtained. Any appropriate prior imaging studies were rev iewed. Using automated exposure control and adjustment of the mA and/or kV according to patient size , radiation dose was kept as low as reasonably achievable to obtain optimal diagnostic quality images . DICOM format image data is available electronically for review and comparison. The site was prepped in a sterile fashion. Full sterile technique was used, including cap, mask, angie rile gloves and gown and a large sterile sheet. Hand hygiene and 2% chlorhexidine and/or betadine/al cohol prep was utilized per protocol for cutaneous antisepsis. The skin and subcutaneous tissues wer e infiltrated with local anesthetic solution. With CT guidance the previously identified target was localized. Biopsy was performed using the presc ribed needle as above. Following biopsy marrow aspiration was performed with repeat puncture. [place]qua te hemostasis was obtained with compression at the puncture site. Follow-up CT scan reveals no hemorrhage. Conscious sedation was performed with the prescribed dosages and duration as above in the presence of an independent trained radiology nurse to assist in the monitoring of the patient. EKG and oximetry remained stable throughout the procedure. The patient tolerated the procedure well and there were no complications. The patient was sent to Radiology Outpatient Unit in stable condition. CONCLUSION: 1. Uncomplicated CT guided bone marrow aspirate. 2. Uncomplicated CT guided bone marrow biopsy. Electronically signed by: Parmjit Claire MD 11/15/2017 3:33 PM EDT
--- NOTE | 2017-11-15 15:40 | P.PNONC ---
Subjective Interval history: Resting in bed in no distress. Looking forward to eating lunch. s/p Bone marrow biopsy today. Objective Vital Signs/Intake & Output: Vital Signs 11/14/17 16:00 11/14/17 20:00 11/15/17 00:00 Temperature 99.2 F 98.6 F 98.2 F Pulse Rate 90 79 80 Respiratory Rate 16 18 18 Blood Pressure 137/66 117/61 120/56 L Pulse Oximetry 97 97 95 11/15/17 04:00 11/15/17 07:30 11/15/17 12:00 Temperature 98 F 98.0 F 98.6 F Pulse Rate 76 73 74 Respiratory Rate 18 18 Blood Pressure 113/72 117/58 L 139/67 Pulse Oximetry 95 99 98 Intake & Output 11/14/17 11/15/17 11/15/17 18:59 06:59 18:59 Intake Total 450 / 450 Balance 450 / 450 Weight 60.9 kg Intake: Oral 450 / 450 Other: # Voids 4 5 Date of Last Bowel Movement 11/13/17 11/13/17 11/13/17 Result Diagrams: 11/15/17 05:09 11/15/17 05:09 Laboratory Results: Laboratory Results - last 24 hr 11/14/17 11/14/17 11/14/17 15:30 15:30 15:30 WBC RBC Hgb Hct MCV MCH MCHC RDW Plt Count MPV Prelim Diff (Auto) Neut % (Auto) Lymph % (Auto) [place] % (Auto) Eos % (Auto) Baso % (Auto) Neut # (Auto) Lymph # (Auto) [place] # (Auto) Eos # (Auto) Baso # (Auto) WBC Differential Seg Neuts % (Manual) Band Neuts % (Manual) Lymphocytes % (Manual) Monocytes % (Manual) Metamyelocytes % (Man) Myelocytes % (Man) Abs Neuts (Manual) Nucleated RBCs/100 WBC Differential Comment Platelet Estimate Platelet Morphology Polychromasia Smear Path Review ESR 7 Haptoglobin Less than 10 L Sodium Potassium Chloride Carbon Dioxide Anion Gap BUN Creatinine Estimated GFR Random Glucose Calcium Iron 48 L TIBC 319 % Saturation 15.0 L Ferritin 374 H Total Bilirubin 2.0 H Direct Bilirubin 0.4 H Indirect Bilirubin 1.6 H AST 32 ALT 32 Alkaline Phosphatase 101 Lactate Dehydrogenase 399 H C-Reactive Protein 0.42 H Total Protein 6.6 D Albumin 3.5 Vitamin B12 532 Folate 6.2 Immunophenotypic Anal 11/15/17 11/15/17 05:09 05:09 WBC 30.7 H RBC 4.45 Hgb 12.9 Hct 40.5 MCV 91.0 MCH 28.9 MCHC 31.7 L RDW 21.2 H Plt Count 279 MPV 8.4 Prelim Diff (Auto) Slide review pending Neut % (Auto) 82.7 H Lymph % (Auto) 9.8 [place] % (Auto) 5.1 Eos % (Auto) 1.5 Baso % (Auto) 0.9 Neut # (Auto) 25.4 H Lymph # (Auto) 3.0 [place] # (Auto) 1.6 H Eos # (Auto) 0.4 Baso # (Auto) 0.3 H WBC Differential Manual diff final Seg Neuts % (Manual) 76 H Band Neuts % (Manual) 13 H Lymphocytes % (Manual) 7 L Monocytes % (Manual) 2 Metamyelocytes % (Man) 1 Myelocytes % (Man) 1 H Abs Neuts (Manual) 27.9 H Nucleated RBCs/100 WBC 2 H Differential Comment . Platelet Estimate Normal Platelet Morphology Normal Polychromasia 2.5 H Smear Path Review ESR Haptoglobin Sodium 141 Potassium 3.7 Chloride 105 Carbon Dioxide 26.7 Anion Gap 9 BUN 16 Creatinine 0.80 Estimated GFR 71 L Random Glucose 59 L Calcium 9.4 D Iron TIBC % Saturation Ferritin Total Bilirubin Direct Bilirubin Indirect Bilirubin AST ALT Alkaline Phosphatase Lactate Dehydrogenase C-Reactive Protein Total Protein Albumin Vitamin B12 Folate Immunophenotypic Anal Culture Results: Microbiology 11/08/17 22:40 Aerobic Blood Culture - Final Blood - Peripheral No growth in 5 days Anaerobic Blood Culture - Final No growth in 5 days 11/08/17 22:45 Aerobic Blood Culture - Final Blood - Peripheral No growth in 5 days Anaerobic Blood Culture - Final No growth in 5 days 11/10/17 15:11 Gram Stain - Final Abscess - Hip Wound Culture - Final No growth in 72 hours (aerobically and anaerobically) Medications: Active Medications Generic Name Dose Route Start Last Admin Trade Name Freq PRN Reason Stop Dose Admin Calcium Carbonate 500 mg 11/10/17 12:00 11/15/17 09:29 Oscal PO Not Given DAILY [facility] Lactobacillus Acidophilus 1 gm 11/10/17 14:15 11/15/17 09:29 Lactinex Pkt PO Not Given DAILY [facility] Lisinopril 20 mg 11/11/17 18:28 11/15/17 11:34 Prinivil PO 20 mg DAILY [facility] Administration Sodium Chloride 2 ml 11/08/17 21:00 11/15/17 08:00 Ns Flush IV.FLUSH 2 ml BID [facility]UL[facility] Administration Vitamin D 400 unit 11/11/17 09:00 11/15/17 09:29 Vitamin D3 PO Not Given DAILY [facility] Objective Remarks: GENERAL: Well-nourished, well-developed patient. SKIN: Warm and dry. HEAD: Normocephalic. EYES: No scleral icterus. No injection or drainage. RESPIRATORY: No accessory muscle use. GASTROINTESTINAL: Abdomen soft, non-tender, nondistended. EXTREMITIES: No edema. NEUROLOGICAL: No obvious focal deficit. Awake, alert, and oriented x3. PSYCHIATRIC: Appropriate mood and affect; insight and judgment normal. Assessment/Plan - Plan 1. Leukocytosis with early cells present on differential findings suspicious for MPN. s/p bone marrow biopsy today. Cleared for discharge home. She will need close follow up in hematology clinic. BCR ABL, JAK2 pending on peripheral blood.
== END 2017-11-15 15:45 | disposition home or self-care (01) ==
LOC: NEPC 10:29 → NEDA 13:55 → N06 15:56
PROVIDERS: ADMIT Family Medicine; ATTEND Family Medicine